=== PATIENT | male | born 1965 ===

== ENCOUNTER 2016-05-05 12:25 | Emergency (ER) | payer MEDICAID ==
[2016-05-05 12:57] VITALS: BMI 23.8
--- NOTE | 2016-05-05 14:01 | C.PDOC ---
History Of Present Illness 50-year-old male, PMHx includes ESRD, presents to the emergency department with complaints of dysuria. Patient states he has been experiencing difficulty when urinating for the past few days. States he was seen by his doctor who prescribed Cirpofloxacin, that he has been taking since 05/02 w/ minor improvement. Patient notes he has been able to urinate a little more than before , but pain before and after urine persists. Pain is described as a burning sensation. He denies fevers, chills, nausea, vomiting, recent travel, or any other associated symptoms. Patient states he called Dr Pérez, who directed him to the ED for further evaluation. No other complaints at this time. PMD Vi pérez MD. Time Seen by Provider: 05/05/16 13:23 Chief Complaint (Nursing): Male Genitourinary History Per: Patient History/Exam Limitations: no limitations Onset/Duration Of Symptoms: Days Current Symptoms Are (Timing): Still Present Severity: Moderate Past Medical History Reviewed: Historical Data, Nursing Documentation, Vital Signs Vital Signs: Last Vital Signs Temp 98.1 F 05/05/16 15:50 Pulse 90 05/05/16 15:50 Resp 20 05/05/16 15:50 BP 132/80 05/05/16 15:50 Pulse Ox 97 05/05/16 15:50 - Medical History PMH: Gastritis, HTN, Hypercholesterolemia, Chronic Kidney Disease Surgical History: Endoscopy - [facility] Procedures ESOPHAGOGASTRODUODENOSCOPY [EGD] W/CLOSED BIOPSY (04/15/14) Family History: States: Unknown Family Hx - Social History Hx Tobacco Use: No Hx Alcohol Use: No Hx Substance Use: No - Immunization History Hx Tetanus Toxoid Vaccination: No Hx Influenza Vaccination: No Hx Pneumococcal Vaccination: No Review Of Systems Except As Marked, All Systems Reviewed And Found Negative. Constitutional: Negative for: Fever Cardiovascular: Negative for: Chest Pain, Palpitations Respiratory: Negative for: Cough, Shortness of Breath Gastrointestinal: Negative for: Nausea, Vomiting Genitourinary: Positive for: Dysuria. Negative for: Hematuria, Penile Discharge , Rash Musculoskeletal: Negative for: Back Pain Skin: Negative for: Rash Neurological: Negative for: Weakness, Numbness, Headache, Dizziness Physical Exam - Physical Exam Appears: Non-toxic, No Acute Distress Head: Atraumatic, Normacephalic Eye(s): bilateral: Normal Inspection, PERRL Nose: Normal Oral Mucosa: Moist Lips: Normal Appearing Neck: Normal ROM Cardiovascular: Rhythm Regular Respiratory: Normal Breath Sounds, No Accessory Muscle Use Gastrointestinal/Abdominal: Soft, Tenderness (mild, suprapubic), No Guarding, No Rebound Extremity: Normal ROM, Pedal Edema (mild, chronic) Neurological/Psych: Oriented x3, Normal Speech ED Course And Treatment O2 Sat by Pulse Oximetry: 97 Medical Decision Making Medical Decision Making: bedside US shows about 100ml PVRV the pt is well appearing, no abd pain or tenderness, no CVA tenderness, no fever disc w pt plan for different abx, urologic follow up, primary follow up, return if worse Disposition - Disposition Disposition: HOME/ ROUTINE Disposition Time: 17:39 Condition: STABLE - Clinical Impression Clinical Impression: Dysuria - Scribe Statement The provider has reviewed the documentation as recorded by the Veeibizabel Navarro All medical record entries made by the Veeibizabel were at my direction and personally dictated by me. I have reviewed the chart and agree that the record accurately reflects my personal performance of the history, physical exam, medical decision making, and the department course for this patient. I have also personally directed, reviewed, and agree with the discharge instructions and disposition.
--- NOTE | 2016-05-05 14:02 | C.PDOC ---
History Of Present Illness Patient is a 50 year old male with medical history of HTN, chronic renal failure , gout who presents to ED with complaint of dysuria since approximately . Patient went to see his PMD, Dr. Vi Chase on 05/02 and was prescribed ciprofloxacin. Patient states he has been taking the cipro since and has had minor alleviation of symptoms. Patient still complains of urinary frequency, burning sensation before and after urination, as well as difficulty emptying his bladder. Patient denies hematuria, fever, chills, nausea, vomiting, recent travel. Patient admits to diarrhea. Time Seen by Provider: 05/05/16 13:23 Chief Complaint (Nursing): Male Genitourinary History Per: Patient History/Exam Limitations: no limitations Current Symptoms Are (Timing): Still Present Quality Of Discomfort: Burning Associated Symptoms: Diarrhea, Urinary Symptoms Alleviating Factors: None Recent travel outside of the [place]: No Past Medical History Vital Signs: Last Vital Signs Temp 98.1 F 05/05/16 12:57 Pulse 79 05/05/16 12:57 Resp 18 05/05/16 12:57 BP 135/85 05/05/16 12:57 Pulse Ox 97 05/05/16 12:57 - Medical History PMH: Gastritis, HTN, Hypercholesterolemia, Chronic Kidney Disease Surgical History: Endoscopy - [facility] Procedures ESOPHAGOGASTRODUODENOSCOPY [EGD] W/CLOSED BIOPSY (04/15/14) Family History: States: Unknown Family Hx - Social History Hx Tobacco Use: No Hx Alcohol Use: No Hx Substance Use: No - Immunization History Hx Tetanus Toxoid Vaccination: No Hx Influenza Vaccination: No Hx Pneumococcal Vaccination: No Review Of Systems Constitutional: Negative for: Fever, Chills Cardiovascular: Negative for: Chest Pain Respiratory: Negative for: Cough Gastrointestinal: Positive for: Diarrhea ED Course And Treatment O2 Sat by Pulse Oximetry: 97
[2016-05-05 15:03] LABS: URINE BACTERIA RARE (<OCC); URINE BILIRUBIN NEGATIVE (NEGATIVE); URINE BLOOD 1+ (NEGATIVE); URINE COLOR Straw (YELLOW); URINE GLUCOSE (UA) NORMAL (Normal); URINE KETONE NEGATIVE (NEGATIVE); URINE LEUKOCYTE ESTERASE NEG Leu/uL (Negative); URINE PROTEIN NEGATIVE (NEGATIVE); URINE UROBILINOGEN NORMAL mg/dL (0.2-1.0); WBC URINE < 1 /hpf (0-5)
[2016-05-05 15:07] LABS: RBC URINE 1 /hpf (0-3)
[2016-05-05 18:14] VITALS: BP 132/78; PULSE 76; RESP 18; TEMP 98; O2SAT 99
== END 2016-05-05 18:00 | disposition home or self-care (01) ==
LOC: C.ER 12:25
DX: R30.0 Dysuria (principal)

== ENCOUNTER 2016-05-31 07:30 | Day surgery (SDC) | payer MEDICAID ==
[2016-05-31 08:14] VITALS: BMI 23.2
[2016-05-31 10:04] VITALS: O2SAT 100
[2016-05-31 10:07] VITALS: TEMP 97
[2016-05-31 11:20] VITALS: BP 159/80; PULSE 69; RESP 14
== END 2016-05-31 10:45 | disposition home or self-care (01) ==
LOC: C.ENDO 07:30
PROVIDERS: ATTEND Internal Medicine Gastroenterology
DX: K29.50 Unspecified chronic gastritis without bleeding (principal)

== ENCOUNTER 2016-07-24 15:45 | Observation (INO) | payer MEDICAID ==
[2016-07-24 15:46] VITALS: BMI 23.2
[2016-07-24] MEDS ORDERED: Sodium Chloride 0.9% 500 ML IV ONE ×2 (16:38→17:08)
--- NOTE | 2016-07-24 16:41 | C.PDOC ---
History Of Present Illness 51 yr old male with PMHx of HTN< CKD and chronic back pain, presents to the ER with complaints of upper abdominal pain for the 3 days. Pain radiates to the back. Patient states the pain is made worse with certain movement. Notes of diarrhea which has resolved now. Denies chest pain, sob, headache, fever, nausea , vomiting, dysuria, weakness or numbness. Time Seen by Provider: 07/24/16 16:25 Chief Complaint (Nursing): Back Pain History Per: Patient History/Exam Limitations: no limitations Onset/Duration Of Symptoms: Days Past Medical History Reviewed: Historical Data, Nursing Documentation, Vital Signs Vital Signs: Last Vital Signs Temp 98.1 F 07/27/16 08:00 Pulse 68 07/27/16 08:00 Resp 20 07/27/16 08:00 BP 143/80 07/27/16 08:00 Pulse Ox 97 07/28/16 04:31 - Medical History PMH: Anemia, Gastritis, HTN, Hypercholesterolemia, Chronic Kidney Disease Surgical History: Endoscopy - [facility] Procedures ESOPHAGOGASTRODUODENOSCOPY [EGD] W/CLOSED BIOPSY (04/15/14) Family History: States: No Known Family Hx - Social History Hx Tobacco Use: No Hx Alcohol Use: No Hx Substance Use: No - Immunization History Hx Tetanus Toxoid Vaccination: No Hx Influenza Vaccination: No Hx Pneumococcal Vaccination: No Review Of Systems Except As Marked, All Systems Reviewed And Found Negative. Constitutional: Negative for: Fever Gastrointestinal: Positive for: Abdominal Pain, Diarrhea (Resolved now). Negative for: Nausea, Vomiting Genitourinary: Negative for: Dysuria Musculoskeletal: Positive for: Back Pain (Chronic ) Neurological: Negative for: Weakness, Numbness Physical Exam - Physical Exam Appears: Well, Non-toxic, Other (uncomfortable) Skin: Warm, Dry, No Rash Head: Atraumatic, Normacephalic Eye(s): bilateral: Normal Inspection, EOMI Nose: Normal Oral Mucosa: Moist Neck: Normal ROM, Supple Chest: Symmetrical, No Tenderness Cardiovascular: Rhythm Regular, No Murmur Respiratory: Normal Breath Sounds, No Rales, No Rhonchi, No Wheezing Gastrointestinal/Abdominal: Soft, Tenderness (RUQ and LUQ ), No Guarding, No Rebound Back: No CVA Tenderness, No Vertebral Tenderness, Paraspinal Tenderness ((+)b/l lower lumbar) Extremity: Normal ROM, Pedal Edema, No Swelling Neurological/Psych: Oriented x3, Normal Speech, Normal Motor, Normal Sensation Gait: Steady ED Course And Treatment - Laboratory Results Result Diagrams: 07/27/16 08:20 07/27/16 08:20 ECG: Interpreted By Me ECG Rhythm: Sinus Rhythm ECG Interpretation: Normal, No Changes From Prior Interpretation Of ECG: LVH. Rate From EC (BPM) O2 Sat by Pulse Oximetry: 97 (RA ) - CT Scan/US US - Abdomen Other Rad Studies (CT/US): Read By Radiologist, Radiology Report Reviewed CT/US Interpretation: HISTORY: Pain. COMPARISON: CT abdomen pelvis without IV contrast performed 04/24/16. TECHNIQUE: Sonographic evaluation of the abdomen. FINDINGS: LIVER: Measures 13.6 cm in sagittal dimension and appears within normal limits of size, shape, and echotexture. No focal hepatic mass identified. The main portal vein appears patent with normal directional flow. No intrahepatic bile duct dilatation. GALLBLADDER: Gallstones. Bladder wall is top normal in thickness measuring approximately 3 mm. Negative sonographic Bah's sign as assessed by the endocrinology physician. COMMON BILE DUCT: Measures 2 mm. PANCREAS: Not well visualized. RIGHT KIDNEY: Measures 10.4 x 4.8 x 5.1cm. No obstructing calculus or hydronephrosis identified. Several probable cysts. For example, 2.7 cm upper pole, 2.8 cm midpole, and 1.4 cm lower pole renal cysts. Echogenic renal parenchyma. LEFT KIDNEY: Measures 11.8 x 4.8 x 5.6cm. No obstructing calculus or hydronephrosis identified. 1.7 cm probable upper pole renal cyst. Extra renal pelvis versus renal cysts measuring approximately 2.8 cm. Echogenic renal parenchyma. SPLEEN: Not visualized. AORTA: Limited views appear unremarkable. IVC: Limited views appear unremarkable. OTHER FINDINGS: None. IMPRESSION: Bilateral renal cysts. Echogenic renal parenchyma may be seen in the setting of medical renal disease. Cholelithiasis. Gallbladder wall is top normal in thickness measuring approximately 3 mm. Negative sonographic Bah's sign as assessed by the endocrinology physician. The spleen is not visualized. Progress Note: PLAN: US - Abdomen, EKG, Troponin, Lipase, CBC, Urinalysis, Morphine IVP, Zofran IVP & Sodium Chloride IV. Case discussed with Dr Solorzano who instructs admission for acute on chronic kindey failure. Case dsicussed with roxie Miranda admission. Disposition - Disposition Disposition: HOSPITALIZED Disposition Time: 18:44 Condition: STABLE - Clinical Impression Clinical Impression: Acute kidney injury, Abdominal pain, Pancreatitis - PA / HANDLE LATHE OPERATOR / Resident Statement MD/DO has reviewed & agrees with the documentation as recorded. - Scribe Statement The provider has reviewed the documentation as recorded by the Scribe Rosalina Tuttle All medical record entries made by the Veeibizabel were at my direction and personally dictated by me. I have reviewed the chart and agree that the record accurately reflects my personal performance of the history, physical exam, medical decision making, and the department course for this patient. I have also personally directed, reviewed, and agree with the discharge instructions and disposition.
[2016-07-24 17:17] LABS: BASO % 0.4 % (0.0-2.0); EOS % 0.1 % (0.0-4.0); HEMATOCRIT 28.3 % (35.0-51.0); LYMPH # 0.6 K/uL (1.0-4.3); MEAN CORPUSCULAR HEMOGLOBIN 31.5 pg (27.0-31.0); MEAN CORPUSCULAR HGB CONC 32.1 g/dL (33.0-37.0); MEAN PLATELET VOLUME 9.8 fL (7.2-11.7); MONO # 0.3 K/uL (0.0-0.8); MONO % 3.3 % (0.0-10.0); NRBC % 0.1 % (0.0-2.0); PLATELET COUNT 171 K/uL (130-400); RED CELL DISTRIBUTION WIDTH 15.8 % (11.5-14.5); WHITE BLOOD COUNT 8.1 K/uL (4.8-10.8)
[2016-07-24 17:26] LABS: RBC URINE < 1 /hpf (0-3); URINE BILIRUBIN NEGATIVE (NEGATIVE); URINE BLOOD 1+ (NEGATIVE); URINE COLOR Straw (YELLOW); URINE GLUCOSE (UA) NORMAL (Normal); URINE KETONE NEGATIVE (NEGATIVE); URINE LEUKOCYTE ESTERASE NEG Leu/uL (Negative); URINE PROTEIN NEGATIVE (NEGATIVE); URINE UROBILINOGEN NORMAL mg/dL (0.2-1.0)
[2016-07-24 17:29] LABS: POTASSIUM 4.3 mmol/L (3.6-5.2)
[2016-07-24 17:32] LABS: ALB/GLOB RATIO 1.2 (1.0-2.1); BILIRUBIN,TOTAL 0.5 mg/dL (0.2-1.3); CALCIUM 8.7 mg/dl (8.6-10.4); TOTAL PROTEIN 5.9 g/dL (6.3-8.3)
[2016-07-24 17:43] LABS: TROPONIN I 0.068 ng/mL (0.00-0.120)
[2016-07-24 18:11] LABS: EOSINOPHIL 1 % (0-4); NEUTROPHIL 85 % (50-75); TOTAL CELLS COUNTED 100
--- NOTE | 2016-07-24 18:16 | US ---
HISTORY: Pain COMPARISON: CT abdomen pelvis without IV contrast performed 04/24/16 TECHNIQUE: Sonographic evaluation of the abdomen. FINDINGS: LIVER: Measures 13.6 cm in sagittal dimension and appears within normal limits of size, shape, and echotexture. No focal hepatic mass identified. The main portal vein appears patent with normal directional flow. No intrahepatic bile duct dilatation. GALLBLADDER: Gallstones. Bladder wall is top normal in thickness measuring approximately 3 mm. Negative sonographic Bah's sign as assessed by the clinical evaluator. COMMON BILE DUCT: Measures 2 mm. PANCREAS: Not well visualized. RIGHT KIDNEY: Measures 10.4 x 4.8 x 5.1cm. No obstructing calculus or hydronephrosis identified. Several probable cysts. For example, 2.7 cm upper pole, 2.8 cm midpole, and 1.4 cm lower pole renal cysts. Echogenic renal parenchyma. LEFT KIDNEY: Measures 11.8 x 4.8 x 5.6cm. No obstructing calculus or hydronephrosis identified. 1.7 cm probable upper pole renal cyst. Extra renal pelvis versus renal cysts measuring approximately 2.8 cm. Echogenic renal parenchyma. SPLEEN: Not visualized. AORTA: Limited views appear unremarkable. IVC: Limited views appear unremarkable. OTHER FINDINGS: None. IMPRESSION: Bilateral renal cysts. Echogenic renal parenchyma may be seen in the setting of medical renal disease Cholelithiasis. Gallbladder wall is top normal in thickness measuring approximately 3 mm. Negative sonographic Bah's sign as assessed by the clinical evaluator. The spleen is not visualized.
--- NOTE | 2016-07-24 19:15 | CP.PCM.HP ---
History of Present Illness - History of Present Illness History of Present Illness: CC: stomach pain for 5 days HPI: 51 year old male PMHx of HTN, HLD, CKD, Chronic back pain, Gout, Anemia of chronic disease, PUD presents with bilateral flank pain for 5 days. Patient reports the pain feels like a dull pressure and is located on both flanks. Patient reports he has pain when he lies down or twists his back but he has no pain when standing or sitting or walking. He denied any pain when I saw him after receiving morphine in the ER but stated he had some tightness in his back at times. 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 Patient saw cover assembler Dr. Roberts on Sunday. Patient admits to abdominal pain, b/l flank pain, b/l leg swelling and back pain and denies fever, chills, diaphoresis, weakness, headache, dizziness, lightheadedness, change in vision, change in hearing, sore throat, dysphagia, chest pain, palpitations, SOB, cough, nausea, vomiting, bowel/ bladder complaints, pain in his legs b/l, recent travel, recent sick contacts. PMD: Dr. Macie Chase PMHx: Chronic back pain, HTN, HLD, CKD, Gout, Anemia of chronic disease, PUD Meds: As per chart: Medrol 4mg po daily, Diclofenac 100mg po daily, Sodiumbicarb 650mg po bid, simvastatin 10mg po daily, ranitidine 150mg po daily , omeprazole 40mg po daily, toprol xl 25mg po daily, Leflunomide 10mg po daily, colchicine 0.6 mg po bid, rocaltrol 0.25mcg po daily, allopurinol 300mg po daily , norvasc 10mg po daily, valsartan 160mg po daily, B complex. <- patient is unsure which medications he is taking ALL: NKDA FamHx: Mother: HTN, HLD, kidney problem SocHx: Denies alcohol, drug, and tobacco use. Lives at home with his and two children ROS: admits: abdominal pain, b/l flank pain, b/l leg swelling and back pain denies: fever, chills, diaphoresis, weakness, headache, dizziness, lightheadedness, change in vision, change in hearing, sore throat, dysphagia, chest pain, palpitations, SOB, cough, nausea, vomiting, bowel/bladder complaints , pain in his legs b/l, recent travel, recent sick contacts. ED Course: Abd u/s Bilateral renal cysts. Echogenic renal parenchyma may be seen in the setting of medical renal disease. Cholelithiasis. Gallbladder wall is top normal in thickness measuring approximately 3 mm. Negative sonographic Bah's sign as assessed by the medic technician. The spleen is not visualized. Morphine IVP, Zofran IVP & Sodium Chloride IV. Routine labs, EKG showing NSR and a negative troponin. Present on Admission - Present on Admission Any Indicators Present on Admission: No Review of Systems - Constitutional Constitutional: As Per HPI. absent: Chills, Fever, Headache, Weakness - EENT Eyes: As Per HPI. absent: Change in Vision Ears: As Per HPI. absent: Ear Discharge, Dizziness Nose/Mouth/Throat: As Per HPI. absent: Nasal Congestion, Sore Throat - Cardiovascular Cardiovascular: As Per HPI, Pedal Edema (b/l). absent: Chest Pain, Dyspnea, Palpitations - Respiratory Respiratory: As Per HPI. absent: Cough, Dyspnea on Exertion, Chest Congestion - Gastrointestinal Gastrointestinal: As Per HPI, Abdominal Pain. absent: Constipation, Diarrhea, Nausea, Vomiting - Genitourinary Genitourinary: As Per HPI, Flank Pain (b/l). absent: Dysuria, Hematuria, Pyuria , Nocturia - Musculoskeletal Musculoskeletal: As Per HPI, Back Pain. absent: Numbness, Tingling - Integumentary Integumentary: As Per HPI. absent: Dry Skin, Rash - Neurological Neurological: As Per HPI. absent: Dizziness, Numbness, Headaches, Tingling - Psychiatric Psychiatric: As Per HPI, Anxiety - Endocrine Endocrine: As Per HPI. absent: Palpitations, Polydipsia, Polyphagia, Polyuria - Hematologic/Lymphatic Hematologic: As Per HPI. absent: Easy Bleeding, Easy Bruising, Lymphadenopathy Past Patient History - Infectious Disease Hx of Infectious Diseases: None - Past Medical History & Family History Past Medical History?: Yes - Past Social History Smoking Status: Never Smoked - CARDIAC Hx Hypercholesterolemia: Yes Hx Hypertension: Yes - PULMONARY Hx Respiratory Disorders: No - NEUROLOGICAL Hx Neurological Disorder: No - HEENT Hx HEENT Problems: No - RENAL Hx Chronic Kidney Disease: Yes - ENDOCRINE/METABOLIC Hx Endocrine Disorders: No - HEMATOLOGICAL/ONCOLOGICAL Hx Anemia: Yes - INTEGUMENTARY Hx Dermatological Problems: Yes Other/Comment: GOUTY NODULES HAND AND JOINTS - MUSCULOSKELETAL/RHEUMATOLOGICAL Hx Musculoskeletal Disorders: Yes Hx Back Pain: Yes Hx Falls: No Hx Gout: Yes - GASTROINTESTINAL Hx Gastritis: Yes - GENITOURINARY/GYNECOLOGICAL Hx Genitourinary Disorders: No - PSYCHIATRIC Hx Substance Use: No - SURGICAL HISTORY Hx Surgeries: Yes Other/Comment: R finger surgery - ANESTHESIA Hx Anesthesia: Yes Hx Anesthesia Reactions: No Hx Malignant Hyperthermia: No Meds Allergies/Adverse Reactions: Allergies Allergy/AdvReac Type Severity Reaction Status Date / Time No Known Allergies Allergy Verified 07/24/16 15:56 Physical Exam - Constitutional Appears: Well, Non-toxic, No Acute Distress - Head Exam Head Exam: ATRAUMATIC, NORMAL INSPECTION, NORMOCEPHALIC - Eye Exam Eye Exam: EOMI, Normal appearance, PERRL. absent: Conjunctival injection, Scleral icterus Pupil Exam: NORMAL ACCOMODATION, PERRL - ENT Exam ENT Exam: Mucous Membranes Moist - Neck Exam Neck exam: Positive for: Full Rom, Normal Inspection. Negative for: Lymphadenopathy, Tenderness - Respiratory Exam Respiratory Exam: Clear to Auscultation Bilateral, NORMAL BREATHING PATTERN. absent: Accessory Muscle Use, Rales, Rhonchi, Wheezes, Respiratory Distress - Cardiovascular Exam Cardiovascular Exam: REGULAR RHYTHM, RRR, +S1, +S2. absent: Systolic Murmur - GI/Abdominal Exam GI & Abdominal Exam: Normal Bowel Sounds, Soft, Tenderness (mild tenderness to deep palpation on ruq and rlq). absent: Distended, Firm, Guarding, Hernia, Rigid - Extremities Exam Extremities exam: Positive for: normal capillary refill, normal inspection, pedal pulses present. Negative for: pedal edema, tenderness - Back Exam Back exam: NORMAL INSPECTION, paraspinal tenderness (b/l lower lumbar). absent : CVA tenderness (L), CVA tenderness (R), rash noted, vertebral tenderness - Neurological Exam Neurological exam: Alert, CN II-XII Intact, Oriented x3 - Psychiatric Exam Psychiatric exam: Anxious - Skin Skin Exam: Dry, Intact, Normal Color, Warm Results - Vital Signs Recent Vital Signs: Last Vital Signs Temp 98.4 F 07/24/16 18:50 Pulse 88 07/24/16 18:50 Resp 18 07/24/16 18:50 BP 162/88 H 07/24/16 18:50 Pulse Ox 96 07/24/16 18:50 - Labs Result Diagrams: 07/24/16 17:08 07/24/16 17:08 Assessment & Plan - Assessment and Plan (Free Text) Assessment: 51 year old male PMHx of HTN, HLD, CKD, Chronic back pain, Anemia of chronic disease, PUD presents with bilateral flank pain for 5 days Plan: NICOLASA on CKD -Cr on admission 3.1 - baseline Cr 2.3 -certain nephrotoxic drugs from med rec are on hold -Abd u/s Bilateral renal cysts. Echogenic renal parenchyma may be seen in the setting of medical renal disease. Cholelithiasis. Gallbladder wall is top normal in thickness measuring approximately 3 mm. Negative sonographic Bah's sign as assessed by the medic technician. The spleen is not visualized. -NS @ 80cc/hr -Calcitriol 0.25mcg po daily -Nephro: Dr Roberts- f/u reccs HTN -Norvasc 10mg po daily -Toprol xl 25mg po daily -home valsartan on hold HLD -f/u lipid panel -statin on hold Gout -Allopurinol 100mg po daily Chronic back pain -Monitor Anemia of chronic disease -H&H 9.1 and 28.3 -Monitor PUD -Protonix 40mg po daily PPX -Protonix 40mg po daily -Heparin 5000u sc q12 -SCDs -Heart healthy mod consistent carb renal diet -Zofran 4mg ivp q6 prn nausea/vomiting Plan discussed with Dr Eleno Akbar PGY1
[2016-07-25] MEDS: Sodium Chloride 0.9% 1,000 ML IV SCH ×2 (01:00→18:20)
--- NOTE | 2016-07-25 07:25 | CP.PCM.PN ---
<ParisnoemiGreg - Last Filed: 07/25/16 19:31> Subjective - Date & Time of Evaluation Date of Evaluation: 07/25/16 Time of Evaluation: 07:17 - Subjective Subjective: PGY-1 note for medicine service: Pt seen and examined at bedside. Nursing reports no acute events overnight. Patient stated that he was able to sleep okay last night and that his b/l flank pain has improved. He is currently complaining of right flank pain this morning that gets worse when he twist his body or when he goes from a sitting position to a supine position. He also admits that he has right foot pain due to gout which he states he had an appointment for this morning at 9am. Patient denies fever, chills, chest pain, sob, n/v, d/c, hematuria, urinary changes, leg swelling, abdominal pain, or cough. Pt meds verified with [facility] (Last filled this month): Omeprazole 40mg daily, Rantidine 150mg BID, NaBicarb 650mg BID, Lopressor 50mg BID, Norvasc 10mg Daily, Simvastatin 20mg Daily Objective - Vital Signs/Intake and Output Vital Signs (last 24 hours): Temp Pulse Resp BP Pulse Ox 97.4 F L 72 20 145/75 96 07/24/16 23:12 07/24/16 23:12 07/24/16 23:12 07/24/16 23:12 07/24/16 23:12 Intake and Output: 07/25/16 07/25/16 06:59 18:59 Intake Total 240 Balance 240 - Medications Medications: Current Medications Allopurinol (Zyloprim) 100 mg PO DAILY [facility] Amlodipine Besylate (Norvasc) 10 mg PO DAILY [facility] Calcitriol (Rocaltrol) 0.25 mcg PO DAILY [facility] Heparin Sodium (Porcine) (Heparin) 5,000 units SC Q12 [facility] Home Med (Leflunomide [Leflunomide]) 10 mg PO DAILY [facility] Sodium Chloride (Sodium Chloride 0.9%) 1,000 mls @ 80 mls/hr IV .[id number] [facility] Last Admin: 07/25/16 01:00 Dose: 80 mls/hr Metoprolol Succinate (Toprol Xl) 25 mg PO DAILY [facility] Ondansetron HCl (Zofran Inj) 4 mg IVP Q6H PRN PRN Reason: Nausea/Vomiting Pantoprazole Sodium (Protonix Ec Tab) 40 mg PO DAILY [facility] Assessment and Plan - Assessment and Plan (Free Text) Assessment: 51 year old male PMHx of HTN, HLD, CKD, Chronic back pain, Anemia of chronic disease, PUD presents with bilateral flank pain for 5 days Plan: NICOLASA on CKD -Cr on admission 3.0 on AM labs - baseline Cr 2.3 -certain nephrotoxic drugs from [facility] rec are on hold -Abd u/s (07/25/16): Bilateral renal cysts. Echogenic renal parenchyma may be seen in the setting of medical renal disease. Cholelithiasis. Gallbladder wall is top normal in thickness measuring approximately 3 mm. Negative sonographic Bah's sign as assessed by the flamer sealer. The spleen is not visualized. -NS @ 80cc/hr -Calcitriol 0.25mcg po daily -Nephro: Dr Roberts - unclear etiology of CKD - check urine eosinophils, urine cx HTN -Norvasc 10mg po daily -Lopressor 50mg PO BID - initially started on XL, but verified with pt pharmacy -home valsartan on hold HLD -Lipid panel: T Cholesterol elevated, but HDL 99, so low cardiac risk -statin on hold (excretion, and for elevated CK, CK-MB) Gout -Allopurinol 100mg po daily - f/u uric acid Chronic back pain/flank pain Lipase elevated - continue fluids -Monitor Anemia of chronic disease -H&H 10.8 -Monitor PUD -Protonix 40mg po daily (Held per Nephro) PPX -Protonix 40mg po daily (discontinued at recc of Nephro) -Heparin 5000u sc q12 -SCDs -Heart healthy mod consistent carb renal diet -Zofran 4mg ivp q6 prn nausea/vomiting DW Dr. Kaila Mann, PGY-1 <Kamran Bright - Last Filed: 07/26/16 08:13> Objective - Vital Signs/Intake and Output Vital Signs (last 24 hours): Temp Pulse Resp BP Pulse Ox 97.8 F 72 18 129/72 97 07/26/16 00:00 07/26/16 00:00 07/26/16 00:00 07/26/16 00:00 07/26/16 00:00 - Medications Medications: Current Medications Allopurinol (Zyloprim) 100 mg PO DAILY [facility] Last Admin: 07/25/16 09:32 Dose: 100 mg Amlodipine Besylate (Norvasc) 10 mg PO DAILY [facility] Last Admin: 07/25/16 09:32 Dose: 10 mg Calcitriol (Rocaltrol) 0.25 mcg PO DAILY [facility] Last Admin: 07/25/16 09:32 Dose: 0.25 mcg Heparin Sodium (Porcine) (Heparin) 5,000 units SC Q12 [facility] Last Admin: 07/25/16 21:41 Dose: 5,000 units Home Med (Leflunomide [Leflunomide]) 10 mg PO DAILY [facility] Sodium Chloride (Sodium Chloride 0.9%) 1,000 mls @ 80 mls/hr IV .[id number] [facility] Last Admin: 07/25/16 18:20 Dose: 80 mls/hr Metoprolol Tartrate (Lopressor) 50 mg PO BID [facility] Ondansetron HCl (Zofran Inj) 4 mg IVP Q6H PRN PRN Reason: Nausea/Vomiting - Labs Labs: 07/26/16 06:24 07/26/16 06:24 APTT 26 SECONDS (21-34) 07/25/16 07:12 Attending/Attestation - Attestation I have personally seen and examined this patient.: Yes I have fully participated in the care of the patient.: Yes I have reviewed all pertinent clinical information, including history, physical exam and plan: Yes Notes (Text): Medical Attending: Patient was seen and examined by me. Agree with the above note by the resident The patient still had an elevated creatine when we saw the patient yesterday. Currently holding medications that could complicate his CKD however he is still of a smaller dose of allopurinol. On IVF slowly at this time. thank you Kamran Bright
[2016-07-25 07:32] LABS: POTASSIUM 3.9 mmol/L (3.6-5.2)
[2016-07-25 07:34] LABS: ALB/GLOB RATIO 1.3 (1.0-2.1); BILIRUBIN,TOTAL 0.7 mg/dL (0.2-1.3)
[2016-07-25 07:35] LABS: BASO % 0.5 % (0.0-2.0); EOS # 0.1 K/uL (0.0-0.7); EOS % 0.6 % (0.0-4.0); HEMATOCRIT 33.9 % (35.0-51.0); LYMPH # 1.7 K/uL (1.0-4.3); LYMPH % 16.6 % (20.0-40.0); MAGNESIUM 1.6 mg/dL (1.6-2.3); MEAN CELL VOLUME 98.3 fL (80.0-94.0); MEAN CORPUSCULAR HEMOGLOBIN 31.3 pg (27.0-31.0); MEAN CORPUSCULAR HGB CONC 31.9 g/dL (33.0-37.0); MEAN PLATELET VOLUME 9.7 fL (7.2-11.7); MONO # 0.9 K/uL (0.0-0.8); MONO % 8.4 % (0.0-10.0); PHOSPHOROUS 3.9 mg/dL (2.5-4.5); RED CELL DISTRIBUTION WIDTH 15.9 % (11.5-14.5); WHITE BLOOD COUNT 10.4 K/uL (4.8-10.8)
--- NOTE | 2016-07-25 09:50 | CARD ---
APPROVED REPORT EKG Measurement Heart [id number] <Conclusion> Normal sinus rhythm Left axis deviation Left ventricular hypertrophy with repolarization abnormality Abnormal ECG
[2016-07-25] MEDS ORDERED: LEFLUNOMIDE 10 MG PO SCH (10:00)
[2016-07-25] MEDS ORDERED: Pantoprazole 40 mg EC Tab PO SCH (10:00)
[2016-07-25] MEDS ORDERED: Metoprolol Succinate 25 mg XL Tab PO SCH ×2 (10:00)
--- NOTE | 2016-07-25 12:19 | CP.PCM.CON ---
History of Present Illness - History of Present Illness History of Present Illness: 51 year old male PMHx of HTN, HLD, CKD, Chronic back pain, Gout, Anemia of chronic disease, PUD presents with bilateral flank pain for 5 days. Patient reports the pain feels like a dull pressure and is located on both flanks. Patient reports he has pain when he lies down or twists his back but he has no pain when standing or sitting or walking. He denied any pain when I saw him after receiving morphine in the ER but stated he had some tightness in his back at times. He also admitted to some lower extremity swelling at the end of the day after work but admitted it resolves overnight. Patient admits to abdominal pain, b/l flank pain, b/l leg swelling and back pain and denies fever, chills, diaphoresis, weakness, headache, dizziness, lightheadedness, change in vision, change in hearing, sore throat, dysphagia, chest pain, palpitations, SOB, cough , nausea, vomiting, bowel/bladder complaints, pain in his legs b/l, recent travel, recent sick contacts. Pt has hx of ckd, last baseline creatinine 2.3 - 2.4 mg/dl. REnal cysts on recent imaging. PMHx: Chronic back pain, HTN, HLD, CKD, Gout, Anemia of chronic disease, PUD Meds: As per chart: Medrol 4mg po daily, Diclofenac 100mg po daily, Sodiumbicarb 650mg po bid, simvastatin 10mg po daily, ranitidine 150mg po daily , omeprazole 40mg po daily, toprol xl 25mg po daily, Leflunomide 10mg po daily, colchicine 0.6 mg po bid, rocaltrol 0.25mcg po daily, allopurinol 300mg po daily , norvasc 10mg po daily, valsartan 160mg po daily, B complex. <- patient is unsure which medications he is taking ALL: NKDA FamHx: Mother: HTN, HLD, kidney problem SocHx: Denies alcohol, drug, and tobacco use. Lives at home with his and two children ROS: admits: abdominal pain, b/l flank pain, b/l leg swelling and back pain denies: fever, chills, diaphoresis, weakness, headache, dizziness, lightheadedness, change in vision, change in hearing, sore throat, dysphagia, chest pain, palpitations, SOB, cough, nausea, vomiting, bowel/bladder complaints , pain in his legs b/l, recent travel, recent sick contacts. Review of Systems - Review of Systems All systems: reviewed and no additional remarkable complaints except (per hpi) Past Patient History - Infectious Disease Hx of Infectious Diseases: None - Past Medical History & Family History Past Medical History?: Yes - Past Social History Smoking Status: Never Smoked - CARDIAC Hx Hypercholesterolemia: Yes Hx Hypertension: Yes - PULMONARY Hx Respiratory Disorders: No - NEUROLOGICAL Hx Neurological Disorder: No - HEENT Hx HEENT Problems: No - RENAL Hx Chronic Kidney Disease: Yes - ENDOCRINE/METABOLIC Hx Endocrine Disorders: No - HEMATOLOGICAL/ONCOLOGICAL Hx Anemia: Yes - INTEGUMENTARY Hx Dermatological Problems: Yes Other/Comment: GOUTY NODULES HAND AND JOINTS - MUSCULOSKELETAL/RHEUMATOLOGICAL Hx Musculoskeletal Disorders: Yes Hx Back Pain: Yes Hx Falls: No Hx Gout: Yes - GASTROINTESTINAL Hx Gastritis: Yes - GENITOURINARY/GYNECOLOGICAL Hx Genitourinary Disorders: No - PSYCHIATRIC Hx Substance Use: No - SURGICAL HISTORY Hx Surgeries: Yes Other/Comment: R finger surgery - ANESTHESIA Hx Anesthesia: Yes Hx Anesthesia Reactions: No Hx Malignant Hyperthermia: No Meds Allergies/Adverse Reactions: Allergies Allergy/AdvReac Type Severity Reaction Status Date / Time No Known Allergies Allergy Verified 07/24/16 15:56 - Medications Medications: Current Medications Allopurinol (Zyloprim) 100 mg PO DAILY [facility] Last Admin: 07/25/16 09:32 Dose: 100 mg Amlodipine Besylate (Norvasc) 10 mg PO DAILY [facility] Last Admin: 07/25/16 09:32 Dose: 10 mg Calcitriol (Rocaltrol) 0.25 mcg PO DAILY [facility] Last Admin: 07/25/16 09:32 Dose: 0.25 mcg Heparin Sodium (Porcine) (Heparin) 5,000 units SC Q12 [facility] Last Admin: 07/25/16 09:33 Dose: 5,000 units Home Med (Leflunomide [Leflunomide]) 10 mg PO DAILY [facility] Sodium Chloride (Sodium Chloride 0.9%) 1,000 mls @ 80 mls/hr IV .[id number] [facility] Last Admin: 07/25/16 01:00 Dose: 80 mls/hr Metoprolol Tartrate (Lopressor) 50 mg PO BID [facility] Ondansetron HCl (Zofran Inj) 4 mg IVP Q6H PRN PRN Reason: Nausea/Vomiting Pantoprazole Sodium (Protonix Ec Tab) 40 mg PO DAILY [facility] Last Admin: 07/25/16 09:32 Dose: 40 mg Physical Exam - Constitutional Appears: Non-toxic, No Acute Distress - Head Exam Head Exam: NORMAL INSPECTION - Eye Exam Eye Exam: Normal appearance - ENT Exam ENT Exam: Mucous Membranes Moist, Normal Exam - Neck Exam Neck exam: Positive for: Normal Inspection - Respiratory Exam Respiratory Exam: Clear to Auscultation Bilateral, NORMAL BREATHING PATTERN - Cardiovascular Exam Cardiovascular Exam: REGULAR RHYTHM, RRR - GI/Abdominal Exam GI & Abdominal Exam: Distended, Normal Bowel Sounds, Soft, Tenderness Additional comments: ruq - Extremities Exam Extremities exam: Positive for: normal inspection - Back Exam Back exam: NORMAL INSPECTION - Neurological Exam Neurological exam: Alert, CN II-XII Intact, Oriented x3 - Skin Skin Exam: Intact, Warm Results - Vital Signs Recent Vital Signs: Last Vital Signs Temp 97.5 F L 07/25/16 08:00 Pulse 80 07/25/16 08:00 Resp 20 07/25/16 08:00 BP 162/98 H 07/25/16 08:00 Pulse Ox 98 07/25/16 08:00 - Labs Result Diagrams: 07/25/16 07:12 07/25/16 07:12 Labs: Laboratory Results - last 24 hr 07/25/16 07/25/16 07/25/16 07:12 07:12 07:12 WBC 10.4 RBC 3.45 L Hgb 10.8 L Hct 33.9 L MCV 98.3 H MCH 31.3 H MCHC 31.9 L RDW 15.9 H Plt Count 181 MPV 9.7 Neut % (Auto) 73.9 Lymph % (Auto) 16.6 L Sevier % (Auto) 8.4 Eos % (Auto) 0.6 Baso % (Auto) 0.5 Neut # 7.7 H Lymph # 1.7 Sevier # 0.9 H Eos # 0.1 Baso # 0.0 APTT Sodium 140 Potassium 3.9 Chloride 104 Carbon Dioxide 27 Anion Gap 12 BUN 45 H Creatinine 3.0 H Est GFR ( Amer) 27 Est GFR (Non-Af Amer) 22 Random Glucose 84 Hemoglobin A1c 5.8 Calcium 9.0 Phosphorus 3.9 Magnesium 1.6 Total Bilirubin 0.7 AST 53 ALT 53 Alkaline Phosphatase 52 Total Protein 7.0 Albumin 4.0 Globulin 3.0 Albumin/Globulin Ratio 1.3 Triglycerides 71 Cholesterol 247 H LDL Cholesterol Direct 112 HDL Cholesterol 99 H 07/25/16 07:12 WBC RBC Hgb Hct MCV MCH MCHC RDW Plt Count MPV Neut % (Auto) Lymph % (Auto) Sevier % (Auto) Eos % (Auto) Baso % (Auto) Neut # Lymph # Sevier # Eos # Baso # APTT 26 Sodium Potassium Chloride Carbon Dioxide Anion Gap BUN Creatinine Est GFR ( Amer) Est GFR (Non-Af Amer) Random Glucose Hemoglobin A1c Calcium Phosphorus Magnesium Total Bilirubin AST ALT Alkaline Phosphatase Total Protein Albumin Globulin Albumin/Globulin Ratio Triglycerides Cholesterol LDL Cholesterol Direct HDL Cholesterol Assessment & Plan (1) Abdominal pain Status: Acute (2) Acute kidney injury Status: Acute (3) Gout Status: Acute (4) CKD (chronic kidney disease) Status: Chronic (5) HTN (hypertension) Status: Chronic - Assessment and Plan (Free Text) Assessment: # luz maria / underlying ckd 4 - unclear etiology. abd US unremarkable. check ua. check urine eosinophils, consider dc PPI . agree w/ iv fluids # abdomial pain: unclear etiology. no hx of nephrolithiasis. check urine culture. elevated lipase -?pancreatitis # htn -maintain meds # gout: check uric acid levels
[2016-07-25 13:10] LABS: URIC ACID 4.8 mg/dL (3.5-8.5)
[2016-07-25 14:08] LABS: RBC URINE < 1 /hpf (0-3); URINE BILIRUBIN NEGATIVE (NEGATIVE); URINE BLOOD 1+ (NEGATIVE); URINE COLOR Straw (YELLOW); URINE GLUCOSE (UA) NORMAL (Normal); URINE KETONE NEGATIVE (NEGATIVE); URINE LEUKOCYTE ESTERASE NEG Leu/uL (Negative); URINE PROTEIN NEGATIVE (NEGATIVE); URINE UROBILINOGEN NORMAL mg/dL (0.2-1.0)
[2016-07-26 06:50] LABS: POTASSIUM 4.5 mmol/L (3.6-5.2)
[2016-07-26 06:52] LABS: ALB/GLOB RATIO 1.2 (1.0-2.1); BILIRUBIN,TOTAL 0.6 mg/dL (0.2-1.3); TOTAL PROTEIN 5.7 g/dL (6.3-8.3)
[2016-07-26 06:53] LABS: CALCIUM 8.4 mg/dl (8.6-10.4); MAGNESIUM 1.3 mg/dL (1.6-2.3)
[2016-07-26 06:58] LABS: BASO # 0.1 K/uL (0.0-0.2); EOS % 0.6 % (0.0-4.0); HEMATOCRIT 31.6 % (35.0-51.0); LYMPH # 1.7 K/uL (1.0-4.3); MEAN CELL VOLUME 98.9 fL (80.0-94.0); MEAN CORPUSCULAR HEMOGLOBIN 31.8 pg (27.0-31.0); MEAN CORPUSCULAR HGB CONC 32.2 g/dL (33.0-37.0); MEAN PLATELET VOLUME 9.9 fL (7.2-11.7); MONO # 0.8 K/uL (0.0-0.8); MONO % 10.9 % (0.0-10.0); RED CELL DISTRIBUTION WIDTH 16.1 % (11.5-14.5); WHITE BLOOD COUNT 7.7 K/uL (4.8-10.8)
[2016-07-26] MEDS: Sodium Chloride 0.9% 1,000 ML IV SCH ×3 (08:43→23:46)
--- NOTE | 2016-07-26 09:27 | CP.PCM.PN ---
<Greg Mann - Last Filed: 07/26/16 16:08> Subjective - Date & Time of Evaluation Date of Evaluation: 07/26/16 Time of Evaluation: 09:25 - Subjective Subjective: PGY-1 note for medicine service: Pt seen and examined at bedside. Nursing reports no acute events overnight. Patient stated that the flank pain had gone away and was able to lie flat and sleep without difficulty. The pain is not recreated with twisting motion or moving from a sitting position to a supine position. Patient denies fever, chills, chest pain, sob, n/v, d/c, hematuria, urinary changes, leg swelling, abdominal pain, or cough. Objective - Vital Signs/Intake and Output Vital Signs (last 24 hours): Temp Pulse Resp BP Pulse Ox 97.8 F 72 18 129/72 97 07/26/16 00:00 07/26/16 00:00 07/26/16 00:00 07/26/16 00:00 07/26/16 00:00 Intake and Output: 07/26/16 07/26/16 06:59 18:59 Intake Total 760 Balance 760 - Medications Medications: Current Medications Allopurinol (Zyloprim) 100 mg PO DAILY [facility] Last Admin: 07/25/16 09:32 Dose: 100 mg Amlodipine Besylate (Norvasc) 10 mg PO DAILY [facility] Last Admin: 07/25/16 09:32 Dose: 10 mg Calcitriol (Rocaltrol) 0.25 mcg PO DAILY [facility] Last Admin: 07/25/16 09:32 Dose: 0.25 mcg Heparin Sodium (Porcine) (Heparin) 5,000 units SC Q12 [facility] Last Admin: 07/25/16 21:41 Dose: 5,000 units Home Med (Leflunomide [Leflunomide]) 10 mg PO DAILY [facility] Sodium Chloride (Sodium Chloride 0.9%) 1,000 mls @ 80 mls/hr IV .[id number] [facility] Last Admin: 07/26/16 08:43 Dose: 80 mls/hr Metoprolol Tartrate (Lopressor) 50 mg PO BID [facility] Ondansetron HCl (Zofran Inj) 4 mg IVP Q6H PRN PRN Reason: Nausea/Vomiting - Labs Labs: 07/26/16 06:24 07/26/16 06:24 APTT 26 SECONDS (21-34) 07/25/16 07:12 - Constitutional Appears: Non-toxic, No Acute Distress - Head Exam Head Exam: ATRAUMATIC, NORMAL INSPECTION, NORMOCEPHALIC - Eye Exam Eye Exam: EOMI. absent: Scleral icterus Pupil Exam: PERRL - ENT Exam ENT Exam: Mucous Membranes Moist - Neck Exam Neck Exam: Full ROM - Respiratory Exam Respiratory Exam: Clear to Ausculation Bilateral, NORMAL BREATHING PATTERN. absent: Rales, Rhonchi, Wheezes - Cardiovascular Exam Cardiovascular Exam: REGULAR RHYTHM, +S1, +S2 - GI/Abdominal Exam GI & Abdominal Exam: Soft, Normal Bowel Sounds. absent: Tenderness - Extremities Exam Extremities Exam: Normal Inspection. absent: Pedal Edema, Tenderness - Back Exam Back Exam: absent: CVA tenderness (L), CVA tenderness (R) - Neurological Exam Neurological Exam: Alert, Awake, Oriented x3 - Psychiatric Exam Psychiatric exam: Normal Affect, Normal Mood - Skin Skin Exam: Dry, Normal Color, Warm Assessment and Plan - Assessment and Plan (Free Text) Assessment: 51 year old male PMHx of HTN, HLD, CKD, Chronic back pain, Anemia of chronic disease, PUD presents with bilateral flank pain for 5 days. Noticable bump in creatinine (3 now from 2.3 baseline). Plan: NICOLASA on CKD -Cr on admission 3.1 on AM labs - baseline Cr 2.3 -certain nephrotoxic drugs from med rec are on hold -Abd u/s (07/25/16): Bilateral renal cysts. Echogenic renal parenchyma may be seen in the setting of medical renal disease. Cholelithiasis. Gallbladder wall is top normal in thickness measuring approximately 3 mm. Negative sonographic Bah's sign as assessed by the embedded engineer. The spleen is not visualized. f/u CT A/P (07/26/16) -NS increased to 120cc/hr -Calcitriol 0.25mcg po daily -Nephro: Dr Roberts - Urine eosinophils: negative - Urine cx: No growth - Believe pancreatitis Abdominal/Flank Pain - Pt denies this AM, but has been right flank/abdomen - believed possible pancreatitis etiology - Lipase >400 yesterday, will redraw today HTN Elevated, will monitor with increased fluids -Norvasc 10mg po daily -Lopressor 50mg PO BID - initially started on XL, but verified with pt pharmacy -home valsartan on hold HLD -Lipid panel: T Cholesterol elevated, but HDL 99, so low cardiac risk -statin on hold (excretion, and for elevated CK, CK-MB) Gout - Discontinued Allopurinol 100mg po daily - uric acid WNL Anemia of chronic disease -H&H stable today -Monitor PUD -Protonix 40mg po daily (Held per Nephro) PPX -Protonix 40mg po daily (discontinued at recc of Nephro) -Heparin 5000u sc q12 -SCDs -Heart healthy mod consistent carb renal diet -Zofran 4mg ivp q6 prn nausea/vomiting DW Dr. Kaila Mann, PGY-1 <Kamran Bright H - Last Filed: 07/26/16 16:38> Objective - Vital Signs/Intake and Output Vital Signs (last 24 hours): Temp Pulse Resp BP Pulse Ox 97.7 F 78 20 152/97 H 99 07/26/16 07:00 07/26/16 07:00 07/26/16 07:00 07/26/16 07:00 07/26/16 07:00 Intake and Output: 07/26/16 07/26/16 06:59 18:59 Intake Total 760 90 Balance 760 90 - Medications Medications: Current Medications Amlodipine Besylate (Norvasc) 10 mg PO DAILY [facility] Last Admin: 07/26/16 12:08 Dose: 10 mg Calcitriol (Rocaltrol) 0.25 mcg PO DAILY [facility] Last Admin: 07/26/16 12:08 Dose: 0.25 mcg Heparin Sodium (Porcine) (Heparin) 5,000 units SC Q12 [facility] Last Admin: 07/26/16 12:09 Dose: 5,000 units Home Med (Leflunomide [Leflunomide]) 10 mg PO DAILY [facility] Sodium Chloride (Sodium Chloride 0.9%) 1,000 mls @ 120 mls/hr IV .[id number] [facility] Last Admin: 07/26/16 16:22 Dose: 120 mls/hr Metoprolol Tartrate (Lopressor) 50 mg PO BID [facility] Last Admin: 07/26/16 12:09 Dose: 50 mg Ondansetron HCl (Zofran Inj) 4 mg IVP Q6H PRN PRN Reason: Nausea/Vomiting - Labs Labs: 07/26/16 06:24 07/26/16 06:24 APTT 26 SECONDS (21-34) 07/25/16 07:12 Attending/Attestation - Attestation I have personally seen and examined this patient.: Yes I have fully participated in the care of the patient.: Yes I have reviewed all pertinent clinical information, including history, physical exam and plan: Yes Notes (Text): Medical attending: Patient was seen and examined by me, agrees the above note by medical geneticist. The patient reported that the abdominal as well as flank pain that he was having earlier has resolved at this time. He still on slow intravenous fluids. It's possible that maybe he had pancreatitis In the meantime his creatinine remains elevated some of his medications have been placed on hold including allopurinol, PILAR inhibitor, NSAIDs. Thank you very much, Kamran Bright
--- NOTE | 2016-07-26 14:49 | CP.PCM.PN ---
Subjective - Date & Time of Evaluation Date of Evaluation: 07/26/16 Time of Evaluation: 14:47 - Subjective Subjective: Less abdominal pains Lipase elevated- likely pancreatitis Creat 3.1; Renal US consistent with CKD Has known CKD 4 Objective - Vital Signs/Intake and Output Vital Signs (last 24 hours): Temp Pulse Resp BP Pulse Ox 97.7 F 78 20 152/97 H 99 07/26/16 07:00 07/26/16 07:00 07/26/16 07:00 07/26/16 07:00 07/26/16 07:00 Intake and Output: 07/26/16 07/26/16 06:59 18:59 Intake Total 760 Balance 760 - Medications Medications: Current Medications Allopurinol (Zyloprim) 100 mg PO DAILY [facility] Last Admin: 07/26/16 12:08 Dose: 100 mg Amlodipine Besylate (Norvasc) 10 mg PO DAILY [facility] Last Admin: 07/26/16 12:08 Dose: 10 mg Calcitriol (Rocaltrol) 0.25 mcg PO DAILY [facility] Last Admin: 07/26/16 12:08 Dose: 0.25 mcg Heparin Sodium (Porcine) (Heparin) 5,000 units SC Q12 [facility] Last Admin: 07/26/16 12:09 Dose: 5,000 units Home Med (Leflunomide [Leflunomide]) 10 mg PO DAILY [facility] Sodium Chloride (Sodium Chloride 0.9%) 1,000 mls @ 80 mls/hr IV .[id number] [facility] Last Admin: 07/26/16 08:43 Dose: 80 mls/hr Metoprolol Tartrate (Lopressor) 50 mg PO BID [facility] Last Admin: 07/26/16 12:09 Dose: 50 mg Ondansetron HCl (Zofran Inj) 4 mg IVP Q6H PRN PRN Reason: Nausea/Vomiting - Labs Labs: 07/26/16 06:24 07/26/16 06:24 APTT 26 SECONDS (21-34) 07/25/16 07:12 - Constitutional Appears: No Acute Distress, Chronically Ill - Head Exam Head Exam: ATRAUMATIC, NORMAL INSPECTION - Eye Exam Eye Exam: EOMI, Normal appearance - Neck Exam Neck Exam: Normal Inspection. absent: Tenderness - Respiratory Exam Respiratory Exam: Clear to Ausculation Bilateral, NORMAL BREATHING PATTERN - Cardiovascular Exam Cardiovascular Exam: REGULAR RHYTHM, +S1 - GI/Abdominal Exam GI & Abdominal Exam: Soft. absent: Tenderness - Extremities Exam Extremities Exam: Normal Inspection. absent: Tenderness - Neurological Exam Neurological Exam: Alert, CN II-XII Intact - Skin Skin Exam: Dry, Warm Assessment and Plan (1) CKD (chronic kidney disease) stage 4, GFR 15-29 ml/min Status: Acute (2) Pancreatitis Status: Acute (3) Abdominal pain Status: Acute (4) HTN (hypertension) Status: Chronic - Assessment and Plan (Free Text) Plan: Monitor renal function, HTN
[2016-07-26 22:08] LABS: CALCIUM 8.9 mg/dL (8.6-10.3)
[2016-07-27 00:38] VITALS: O2SAT 97
[2016-07-27] MEDS: Sodium Chloride 0.9% 1,000 ML IV SCH (08:09)
[2016-07-27 08:25] VITALS: BP 143/80; PULSE 68; RESP 20; TEMP 98.1
[2016-07-27 08:26] LABS: BASO % 0.5 % (0.0-2.0); EOS # 0.1 K/uL (0.0-0.7); EOS % 0.7 % (0.0-4.0); HEMATOCRIT 31.9 % (35.0-51.0); LYMPH # 1.6 K/uL (1.0-4.3); LYMPH % 18.4 % (20.0-40.0); MEAN CELL VOLUME 97.4 fL (80.0-94.0); MEAN CORPUSCULAR HEMOGLOBIN 31.5 pg (27.0-31.0); MEAN CORPUSCULAR HGB CONC 32.3 g/dL (33.0-37.0); MEAN PLATELET VOLUME 9.8 fL (7.2-11.7); MONO % 11.6 % (0.0-10.0); RED CELL DISTRIBUTION WIDTH 15.6 % (11.5-14.5); WHITE BLOOD COUNT 8.9 K/uL (4.8-10.8)
[2016-07-27 08:55] LABS: POTASSIUM 3.8 mmol/L (3.6-5.2)
[2016-07-27 08:57] LABS: BILIRUBIN,TOTAL 0.4 mg/dL (0.2-1.3); TOTAL PROTEIN 5.8 g/dL (6.3-8.3)
[2016-07-27 08:58] LABS: CALCIUM 8.1 mg/dl (8.6-10.4); PHOSPHOROUS 3.1 mg/dL (2.5-4.5)
[2016-07-27] MEDS: Magnesium Sulfate 1 gm in D5W 1 GM/100 ML BAG IVPB SCH ×2 (11:05→11:54)
--- NOTE | 2016-07-27 11:05 | CT ---
PROCEDURE: CT Abdomen and Pelvis without Oral or IV contrast. HISTORY: abd pain, elevated lipase COMPARISON: Abdominal ultrasound performed 07/24/16, CT abdomen and pelvis without IV contrast performed 04/24/16 TECHNIQUE: Contiguous axial images of the abdomen and pelvis. No oral or IV contrast administered. Coronal and Sagittal reformats generated and reviewed. Radiation dose: Total exam DLP = 270.90 mGy-cm. This CT exam was performed using one or more of the following dose reduction techniques: Automated exposure control, adjustment of the mA and/or kV according to patient size, and/or use of iterative reconstruction technique. FINDINGS: There is limited evaluation of the solid organs without the administration of IV contrast. LOWER THORAX: Bilateral lower lobe infiltrates or atelectasis. There is no visible pleural effusion or pneumothorax. Partially imaged borderline cardiomegaly. Small hiatal hernia. LIVER: Unremarkable unenhanced appearance. GALLBLADDER AND BILE DUCTS: Cholelithiasis. PANCREAS: Unremarkable unenhanced appearance. SPLEEN: 7 mm probable splenule. Otherwise unremarkable unenhanced appearance. ADRENALS: Unremarkable unenhanced appearance. KIDNEYS AND URETERS: No hydronephrosis or obstructing renal calculus. Bilateral low attenuation lesions characterized by ultrasound as cystic. BLADDER: The urinary bladder appears unremarkable. REPRODUCTIVE: The prostate gland measures approximately 3.0 x 5.3 cm. APPENDIX: The appendix appears within normal limits of caliber. No secondary signs of acute appendicitis. BOWEL: The stomach is nondistended. Lack of oral contrast limits evaluation for bowel pathology. The bowel loops appear within normal limits of caliber without evidence of intestinal obstruction. Diverticulosis without CT evidence of acute diverticulitis. PERITONEUM: No significant free fluid. No definite free air. LYMPH NODES: No bulky lymphadenopathy identified. VASCULATURE: Atherosclerotic calcifications. No aortic aneurysm. BONES: Multilevel degenerative changes. OTHER FINDINGS: Fat containing left inguinal hernia. Small fat containing umbilical hernia. IMPRESSION: Cholelithiasis. Bilateral lower lobe infiltrates or atelectasis. Bilateral low-attenuation lesions within the kidneys characterized by ultrasound a cystic. Borderline enlargement of the prostate gland. Correlate with PSA. Additional incidental findings as above. Preliminary impression was provided by virtual radiologic.
--- NOTE | 2016-07-27 11:12 | CP.PCM.PN ---
Subjective - Date & Time of Evaluation Date of Evaluation: 07/27/16 Time of Evaluation: 11:10 - Subjective Subjective: Alert Less abdominal pains lipase normalizing creat 3.1- same Mag being repleted TSAT low Objective - Vital Signs/Intake and Output Vital Signs (last 24 hours): Temp Pulse Resp BP Pulse Ox 98.1 F 68 20 143/80 97 07/27/16 08:00 07/27/16 08:00 07/27/16 08:00 07/27/16 08:00 07/27/16 08:00 Intake and Output: 07/27/16 07/27/16 06:59 18:59 Intake Total 1760 Balance 1760 - Medications Medications: Current Medications Amlodipine Besylate (Norvasc) 10 mg PO DAILY [facility] Last Admin: 07/26/16 12:08 Dose: 10 mg Calcitriol (Rocaltrol) 0.25 mcg PO DAILY [facility] Last Admin: 07/26/16 12:08 Dose: 0.25 mcg Heparin Sodium (Porcine) (Heparin) 5,000 units SC Q12 [facility] Last Admin: 07/26/16 21:37 Dose: 5,000 units Home Med (Leflunomide [Leflunomide]) 10 mg PO DAILY [facility] Sodium Chloride (Sodium Chloride 0.9%) 1,000 mls @ 120 mls/hr IV .Q8H20M [facility] Last Admin: 07/27/16 08:09 Dose: 120 mls/hr Magnesium Sulfate/Dextrose (Magnesium Sulfate 1 Gm/100 Ml D5w) 1 gm in 100 mls @ 100 mls/hr IVPB Q1 [facility] Stop: 07/27/16 11:59 Last Admin: 07/27/16 11:05 Dose: 100 mls/hr Metoprolol Tartrate (Lopressor) 50 mg PO BID [facility] Last Admin: 07/26/16 17:26 Dose: 50 mg Ondansetron HCl (Zofran Inj) 4 mg IVP Q6H PRN PRN Reason: Nausea/Vomiting - Labs Labs: 07/27/16 08:20 07/27/16 08:20 APTT 26 SECONDS (21-34) 07/25/16 07:12 - Constitutional Appears: No Acute Distress, Chronically Ill - Head Exam Head Exam: ATRAUMATIC, NORMAL INSPECTION - Eye Exam Eye Exam: EOMI, Normal appearance - Neck Exam Neck Exam: Normal Inspection. absent: Tenderness - Respiratory Exam Respiratory Exam: Clear to Ausculation Bilateral, NORMAL BREATHING PATTERN - Cardiovascular Exam Cardiovascular Exam: REGULAR RHYTHM, +S1 - GI/Abdominal Exam GI & Abdominal Exam: Soft. absent: Tenderness - Extremities Exam Extremities Exam: Normal Inspection. absent: Tenderness - Neurological Exam Neurological Exam: Alert, CN II-XII Intact - Skin Skin Exam: Dry, Warm Assessment and Plan (1) CKD (chronic kidney disease) stage 4, GFR 15-29 ml/min Status: Acute (2) Pancreatitis Status: Acute (3) Abdominal pain Status: Acute (4) HTN (hypertension) Status: Chronic - Assessment and Plan (Free Text) Plan: Replete Fe Monitor renal function- can be done as outpt
--- NOTE | 2016-07-27 12:14 | CP.PCM.DIS ---
<Greg Mann - Last Filed: 07/27/16 22:50> Provider - Provider Date of Admission: 07/24/16 18:39 Attending physician: Yaya Johansen MD Primary care physician: DR. Macie Chase Consults: DR. Roberts (nephrology) Time Spent in preparation of Discharge (in minutes): 40 Diagnosis - Discharge Diagnosis (1) CKD (chronic kidney disease) stage 4, GFR 15-29 ml/min Status: Chronic Comment: Cr now consistently 3, bumped up from previous admission. Dr. Roberts, pts consignee consulted. Unknown etiology of Cr rise, possibly medication induced so adjusted meds (2) Gout Status: Chronic Comment: Discontinued gout meds for now as they are nephrotoxic (3) Pancreatitis Status: Acute Comment: Lipase elevated. Given IVF, pt able to tolerate diet Hospital Course - Lab Results Lab Results: Micro Results 07/25/16 12:48 Urine,Clean Catch Urine Culture - Final No Growth (<1,000 CFU/ML) Most Recent Lab Values WBC 8.9 K/uL (4.8-10.8) 07/27/16 08:20 RBC 3.27 Mil/uL (4.40-5.90) L 07/27/16 08:20 Hgb 10.3 g/dL (12.0-18.0) L 07/27/16 08:20 Hct 31.9 % (35.0-51.0) L 07/27/16 08:20 MCV 97.4 fL (80.0-94.0) H 07/27/16 08:20 MCH 31.5 pg (27.0-31.0) H 07/27/16 08:20 MCHC 32.3 g/dL (33.0-37.0) L 07/27/16 08:20 RDW 15.6 % (11.5-14.5) H 07/27/16 08:20 Plt Count 159 K/uL (130-400) 07/27/16 08:20 MPV 9.8 fL (7.2-11.7) 07/27/16 08:20 Neut % (Auto) 68.8 % (50.0-75.0) 07/27/16 08:20 Lymph % (Auto) 18.4 % (20.0-40.0) L 07/27/16 08:20 [place] % (Auto) 11.6 % (0.0-10.0) H 07/27/16 08:20 Eos % (Auto) 0.7 % (0.0-4.0) 07/27/16 08:20 Baso % (Auto) 0.5 % (0.0-2.0) 07/27/16 08:20 Neut # 6.1 K/uL (1.8-7.0) 07/27/16 08:20 Lymph # 1.6 K/uL (1.0-4.3) 07/27/16 08:20 [place] # 1.0 K/uL (0.0-0.8) H 07/27/16 08:20 Eos # 0.1 K/uL (0.0-0.7) 07/27/16 08:20 Baso # 0.0 K/uL (0.0-0.2) 07/27/16 08:20 Neutrophils % (Manual) 85 % (50-75) H 07/24/16 17:08 Band Neutrophils % 5 % (0-2) H 07/24/16 17:08 Lymphocytes % (Manual) 8 % (20-40) L 07/24/16 17:08 Monocytes % (Manual) 1 % (0-10) 07/24/16 17:08 Eosinophils % (Manual) 1 % (0-4) 07/24/16 17:08 Platelet Estimate Normal (NORMAL) 07/24/16 17:08 Hypochromasia (manual) Slight 07/24/16 17:08 Anisocytosis (manual) Slight 07/24/16 17:08 Tear Drop Cells Slight 07/24/16 17:08 Ovalocytes Slight 07/24/16 17:08 APTT 26 SECONDS (21-34) 07/25/16 07:12 Sodium 136 mmol/L (132-148) 07/27/16 08:20 Potassium 3.8 mmol/L (3.6-5.2) 07/27/16 08:20 Chloride 104 mmol/L (98-107) 07/27/16 08:20 Carbon Dioxide 23 mmol/L (22-30) 07/27/16 08:20 Anion Gap 13 (10-20) 07/27/16 08:20 BUN 44 mg/dL (9-20) H 07/27/16 08:20 Creatinine 3.1 MG/DL (0.8-1.5) H 07/27/16 08:20 Est GFR ( Amer) 26 07/27/16 08:20 Est GFR (Non-Af Amer) 21 07/27/16 08:20 Random Glucose 92 mg/dL (75-110) 07/27/16 08:20 Hemoglobin A1c 5.8 % (4.2-6.5) 07/25/16 07:12 Uric Acid 4.8 mg/dL (3.5-8.5) 07/25/16 07:12 Calcium 8.1 mg/dl (8.6-10.4) L 07/27/16 08:20 Phosphorus 3.1 mg/dL (2.5-4.5) 07/27/16 08:20 Magnesium 1.0 mg/dL (1.6-2.3) L* D 07/27/16 08:20 % Saturation 5 (20-55) L 07/27/16 08:20 Total Bilirubin 0.4 mg/dL (0.2-1.3) 07/27/16 08:20 AST 35 U/L (17-59) 07/27/16 08:20 ALT 42 U/L (21-72) 07/27/16 08:20 Alkaline Phosphatase 49 U/L (38-126) 07/27/16 08:20 Total Creatine Kinase 318 U/L (55-170) H 07/24/16 17:08 CK-MB (Mass) 10.9 ng/mL (0.0-3.38) H 07/24/16 17:08 Troponin I 0.0680 ng/mL (0.00-0.120) 07/24/16 17:08 Total Protein 5.8 g/dL (6.3-8.3) L 07/27/16 08:20 Albumin 2.8 g/dL (3.5-5.0) L 07/27/16 08:20 Globulin 2.9 gm/dL (2.2-3.9) 07/27/16 08:20 Albumin/Globulin Ratio 1.0 (1.0-2.1) 07/27/16 08:20 Triglycerides 71 mg/dL (0-149) 07/25/16 07:12 Cholesterol 247 mg/dL (0-199) H 07/25/16 07:12 LDL Cholesterol Direct 112 mg/dL (0-129) 07/25/16 07:12 HDL Cholesterol 99 mg/dL (30-70) H 07/25/16 07:12 Lipase 296 U/L (23-300) 07/27/16 08:20 Calcium (PTH Intact) 8.9 mg/dL (8.6-10.3) 07/25/16 13:50 PTH w/Ion &Tot Calcium 208 pg/mL (14-64) H 07/25/16 13:50 Urine Color Straw (YELLOW) 07/25/16 14:00 Urine Clarity Clear (Clear) 07/25/16 14:00 Urine pH 5.0 (5.0-8.0) 07/25/16 14:00 Ur Specific [place] 1.004 (1.003-1.030) 07/25/16 14:00 Urine Protein Negative mg/dL (NEGATIVE) 07/25/16 14:00 Urine Glucose (UA) Normal mg/dL (Normal) 07/25/16 14:00 Urine Ketones Negative mg/dL (NEGATIVE) 07/25/16 14:00 Urine Blood 1+ (NEGATIVE) H 07/25/16 14:00 Urine Nitrate Negative (NEGATIVE) 07/25/16 14:00 Urine Bilirubin Negative (NEGATIVE) 07/25/16 14:00 Urine Urobilinogen Normal mg/dL (0.2-1.0) 07/25/16 14:00 Ur Leukocyte Esterase Neg Mell/uL (Negative) 07/25/16 14:00 Urine RBC (Auto) < 1 /hpf (0-3) 07/25/16 14:00 Urine Eosinophils Negative (NEGATIVE) 07/25/16 14:00 - Hospital Course Hospital Course: On admission: 51 year old male PMHx of HTN, HLD, CKD, Chronic back pain, Gout, Anemia of chronic disease, PUD presents with bilateral flank pain for 5 days. Patient reports the pain feels like a dull pressure and is located on both flanks. Patient reports he has pain when he lies down or twists his back but he has no pain when standing or sitting or walking. He denied any pain when I saw him after receiving morphine in the ER but stated he had some tightness in his back at times. 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 Patient saw consignee Dr. Roberts on Sunday. Patient admits to abdominal pain, b/l flank pain, b/l leg swelling and back pain and denies fever, chills, diaphoresis, weakness, headache, dizziness, lightheadedness, change in vision, change in hearing, sore throat, dysphagia, chest pain, palpitations, SOB, cough, nausea, vomiting, bowel/ bladder complaints, pain in his legs b/l, recent travel, recent sick contacts. Hospital course: Pt admitted for flank/abd pain on 07/24/16. US abd on admission showed b/l renal cysts (known from prior MRI), cholelithiasis, negative rubalcava sign. Labs showed increase in creatinine from baseline of 2.[address] Roberts, pts nephro, consulted. Nephrotoxic drugs held. Urine cx, UA, urine eosinophils, and uric acid checked- all negative. Elevated lipase hinted at possible pancreatitis. IVF increased. Pt denied pain on last day of course and was cleared for discharge by Dr. Bright. He was given prescription for new blood pressure meds. Discharge Exam - Head Exam Head Exam: ATRAUMATIC, NORMAL INSPECTION - Eye Exam Eye Exam: EOMI, PERRL Pupil Exam: NORMAL ACCOMODATION - ENT Exam ENT Exam: Mucous Membranes Moist - Respiratory Exam Respiratory Exam: Clear to PA & Lateral. absent: Accessory Muscle Use, Chest Wall Tenderness, Respiratory Distress - Cardiovascular Exam Cardiovascular Exam: REGULAR RHYTHM, +S1, +S2 - GI/Abdominal Exam GI & Abdominal Exam: Normal Bowel Sounds, Soft. absent: Guarding, Tenderness - Extremities Exam Extremities exam: normal capillary refill, pedal pulses present - Back Exam Back exam: absent: CVA tenderness (L), CVA tenderness (R) - Neurological Exam Neurological exam: Alert, Oriented x3 - Psychiatric Exam Psychiatric exam: Normal Affect, Normal Mood - Skin Skin Exam: Dry, Normal Color, Warm Discharge Plan - Discharge Medications Prescriptions: amLODIPine [Norvasc] 10 mg PO DAILY #30 Metoprolol Tartrate [Lopressor] 50 mg PO BID #60 tab - Follow Up Plan Condition: STABLE Disposition: HOME/ ROUTINE Instructions: Metoprolol (By mouth), Amlodipine (By mouth), Chest Pain (DC), Acute Abdominal Pain (DC) Additional Instructions: Patient stable for discharge per Dr. Bright. Patient may resume home medications EXCEPT for ALLOPURINOL, VALSARTAN, COLCHICINE, and SIMVASTATIN. He has been prescribed the following medications: Norvasc and Lopressor Patient is make an appointment with their PMD, Dr. Elizabeth Chase, within one week of discharge for follow-up of flank/back pain and change in blood pressure medication. He should also make an appointment to follow up with Security Alarm Technician, Dr. Roberts, to continue evaluation of worsening renal function. He is advised to return to the emergency department if symptoms return or worsen. These instructions were given to the pt in Danish/Angolan. Patient expressed verbal understanding of these instructions. Prescribed medications: Lopresspr 50mg, one tab by mouth twice daily Norvasc 10mg, one tab mouth once daily Referrals: Vi Chase MD [Staff Provider] - <Kamran Bright - Last Filed: 07/28/16 07:27> Provider - Provider Date of Admission: 07/24/16 18:39 Attending physician: Yaya Johansen MD Hospital Course - Lab Results Lab Results: Micro Results 07/25/16 12:48 Urine,Clean Catch Urine Culture - Final No Growth (<1,000 CFU/ML) Most Recent Lab Values WBC 8.9 K/uL (4.8-10.8) 07/27/16 08:20 RBC 3.27 Mil/uL (4.40-5.90) L 07/27/16 08:20 Hgb 10.3 g/dL (12.0-18.0) L 07/27/16 08:20 Hct 31.9 % (35.0-51.0) L 07/27/16 08:20 MCV 97.4 fL (80.0-94.0) H 07/27/16 08:20 MCH 31.5 pg (27.0-31.0) H 07/27/16 08:20 MCHC 32.3 g/dL (33.0-37.0) L 07/27/16 08:20 RDW 15.6 % (11.5-14.5) H 07/27/16 08:20 Plt Count 159 K/uL (130-400) 07/27/16 08:20 MPV 9.8 fL (7.2-11.7) 07/27/16 08:20 Neut % (Auto) 68.8 % (50.0-75.0) 07/27/16 08:20 Lymph % (Auto) 18.4 % (20.0-40.0) L 07/27/16 08:20 [place] % (Auto) 11.6 % (0.0-10.0) H 07/27/16 08:20 Eos % (Auto) 0.7 % (0.0-4.0) 07/27/16 08:20 Baso % (Auto) 0.5 % (0.0-2.0) 07/27/16 08:20 Neut # 6.1 K/uL (1.8-7.0) 07/27/16 08:20 Lymph # 1.6 K/uL (1.0-4.3) 07/27/16 08:20 [place] # 1.0 K/uL (0.0-0.8) H 07/27/16 08:20 Eos # 0.1 K/uL (0.0-0.7) 07/27/16 08:20 Baso # 0.0 K/uL (0.0-0.2) 07/27/16 08:20 Neutrophils % (Manual) 85 % (50-75) H 07/24/16 17:08 Band Neutrophils % 5 % (0-2) H 07/24/16 17:08 Lymphocytes % (Manual) 8 % (20-40) L 07/24/16 17:08 Monocytes % (Manual) 1 % (0-10) 07/24/16 17:08 Eosinophils % (Manual) 1 % (0-4) 07/24/16 17:08 Platelet Estimate Normal (NORMAL) 07/24/16 17:08 Hypochromasia (manual) Slight 07/24/16 17:08 Anisocytosis (manual) Slight 07/24/16 17:08 Tear Drop Cells Slight 07/24/16 17:08 Ovalocytes Slight 07/24/16 17:08 APTT 26 SECONDS (21-34) 07/25/16 07:12 Sodium 136 mmol/L (132-148) 07/27/16 08:20 Potassium 3.8 mmol/L (3.6-5.2) 07/27/16 08:20 Chloride 104 mmol/L (98-107) 07/27/16 08:20 Carbon Dioxide 23 mmol/L (22-30) 07/27/16 08:20 Anion Gap 13 (10-20) 07/27/16 08:20 BUN 44 mg/dL (9-20) H 07/27/16 08:20 Creatinine 3.1 MG/DL (0.8-1.5) H 07/27/16 08:20 Est GFR ( Amer) 26 07/27/16 08:20 Est GFR (Non-Af Amer) 21 07/27/16 08:20 Random Glucose 92 mg/dL (75-110) 07/27/16 08:20 Hemoglobin A1c 5.8 % (4.2-6.5) 07/25/16 07:12 Uric Acid 4.8 mg/dL (3.5-8.5) 07/25/16 07:12 Calcium 8.1 mg/dl (8.6-10.4) L 07/27/16 08:20 Phosphorus 3.1 mg/dL (2.5-4.5) 07/27/16 08:20 Magnesium 1.0 mg/dL (1.6-2.3) L* D 07/27/16 08:20 % Saturation 5 (20-55) L 07/27/16 08:20 Total Bilirubin 0.4 mg/dL (0.2-1.3) 07/27/16 08:20 AST 35 U/L (17-59) 07/27/16 08:20 ALT 42 U/L (21-72) 07/27/16 08:20 Alkaline Phosphatase 49 U/L (38-126) 07/27/16 08:20 Total Creatine Kinase 318 U/L (55-170) H 07/24/16 17:08 CK-MB (Mass) 10.9 ng/mL (0.0-3.38) H 07/24/16 17:08 Troponin I 0.0680 ng/mL (0.00-0.120) 07/24/16 17:08 Total Protein 5.8 g/dL (6.3-8.3) L 07/27/16 08:20 Albumin 2.8 g/dL (3.5-5.0) L 07/27/16 08:20 Globulin 2.9 gm/dL (2.2-3.9) 07/27/16 08:20 Albumin/Globulin Ratio 1.0 (1.0-2.1) 07/27/16 08:20 Triglycerides 71 mg/dL (0-149) 07/25/16 07:12 Cholesterol 247 mg/dL (0-199) H 07/25/16 07:12 LDL Cholesterol Direct 112 mg/dL (0-129) 07/25/16 07:12 HDL Cholesterol 99 mg/dL (30-70) H 07/25/16 07:12 Lipase 296 U/L (23-300) 07/27/16 08:20 Calcium (PTH Intact) 8.9 mg/dL (8.6-10.3) 07/25/16 13:50 PTH w/Ion &Tot Calcium 208 pg/mL (14-64) H 07/25/16 13:50 Urine Color Straw (YELLOW) 07/25/16 14:00 Urine Clarity Clear (Clear) 07/25/16 14:00 Urine pH 5.0 (5.0-8.0) 07/25/16 14:00 Ur Specific [place] 1.004 (1.003-1.030) 07/25/16 14:00 Urine Protein Negative mg/dL (NEGATIVE) 07/25/16 14:00 Urine Glucose (UA) Normal mg/dL (Normal) 07/25/16 14:00 Urine Ketones Negative mg/dL (NEGATIVE) 07/25/16 14:00 Urine Blood 1+ (NEGATIVE) H 07/25/16 14:00 Urine Nitrate Negative (NEGATIVE) 07/25/16 14:00 Urine Bilirubin Negative (NEGATIVE) 07/25/16 14:00 Urine Urobilinogen Normal mg/dL (0.2-1.0) 07/25/16 14:00 Ur Leukocyte Esterase Neg Mell/uL (Negative) 07/25/16 14:00 Urine RBC (Auto) < 1 /hpf (0-3) 07/25/16 14:00 Urine Eosinophils Negative (NEGATIVE) 07/25/16 14:00 Attending/Attestation - Attestation I have personally seen and examined this patient.: Yes I have fully participated in the care of the patient.: Yes I have reviewed all pertinent clinical information, including history, physical exam and plan: Yes Notes (Text): 07/28/16 07:23 Medical attending: Patient was seen and examined by me, agree with the above note by medical secretary. The patient was no longer having any abdominal or flank pain that brought him to the hospital. I did discuss the case over with his consignee as well as with his primary care physician. The patient has had an extensive outpatient workup with regards to the abdominal pain. While here we did consider the possibility of maybe a small pancreatitis but this immediately resolved without us doing much on our part. More concerning was the elevated creatinine. He does have a history of CAD it looks as if his baseline creatinine is about 2.0, however when he was admitted he had elevated creatinine of 3.1. He is on medication that can increase the creatinine over time including PILAR inhibitor, NSAID class medication, and also medication for his rheumatoid arthritis, and also on allopurinol as well. He was evaluated by nephrology, he had additional imaging of his abdomen done. For the time being we held up PILAR inhibitor he was on, and also to NSAIDs, ill- appearing, I discussed this with the patient's primary care physician he's given need to follow-up primary care physician as well as his consignee Thank you very much, Kamran Bright
[2016-07-27] MEDS ORDERED: Pneumococcal 23-Valent Vaccine IM ONE (12:40)
== END 2016-07-27 14:15 | disposition home or self-care (01) ==
LOC: C.ER 15:45 → C.9E 18:39 → C.5T 19:19 → C.3T 07-27 12:08
PROVIDERS: ADMIT Internal Medicine; ATTEND Internal Medicine
DX: D63.8 Anemia in other chronic diseases classified elsewhere (principal); I12.9 Hypertensive chronic kidney disease with stage 1 through stage 4 chronic kidney disease, or unspecified chronic kidney disease; K85.90 Acute pancreatitis without necrosis or infection, unspecified; E78.5 Hyperlipidemia, unspecified; M10.9 Gout, unspecified; N17.9 Acute kidney failure, unspecified; N18.4 Chronic kidney disease, stage 4 (severe)
CPT/HCPCS: 36415; 74176; 76700; 80053; 80061; 81001; 82550; 82553; 83036; 83690; 83735; 83970; 84100; 84484; 84550; 85025; 85730; 87086; 87205; 93005; 96375; 99285; G0378; J1644; J2270; J2405; J3475; J7040

== ENCOUNTER 2016-11-20 18:20 | Emergency (ER) | payer MEDICAID ==
[2016-11-20 18:21] VITALS: BMI 24.5
[2016-11-20 18:32] VITALS: RESP 20
--- NOTE | 2016-11-20 19:34 | C.PDOC ---
History Of Present Illness 51 year old male with a Hx of gout who presents to the ER with a complaint of right elbow pain for 1 week. Patient denies trauma, weakness, or numbness. no fever or chills. Time Seen by Provider: 11/20/16 18:52 Chief Complaint (Nursing): Upper Extremity Problem/Injury History Per: Patient History/Exam Limitations: no limitations Onset/Duration Of Symptoms: Days Current Symptoms Are (Timing): Still Present Recent travel outside of the [place]: No Past Medical History Reviewed: Historical Data, Nursing Documentation, Vital Signs Vital Signs: Last Vital Signs Temp 98.1 F 11/20/16 20:31 Pulse 76 11/20/16 20:31 Resp 20 11/20/16 20:31 BP 148/76 11/20/16 20:31 Pulse Ox 99 11/23/16 06:50 - Medical History PMH: Anemia, Gastritis, HTN, Hypercholesterolemia, Chronic Kidney Disease Surgical History: Endoscopy - [facility] Procedures ESOPHAGOGASTRODUODENOSCOPY [EGD] W/CLOSED BIOPSY (04/15/14) Family History: States: Unknown Family Hx - Social History Hx Tobacco Use: No Hx Alcohol Use: No Hx Substance Use: No - Immunization History Hx Tetanus Toxoid Vaccination: No Hx Influenza Vaccination: No Hx Pneumococcal Vaccination: No Review Of Systems Musculoskeletal: Positive for: Arm Pain Neurological: Negative for: Weakness, Numbness Physical Exam - Physical Exam Appears: Non-toxic, No Acute Distress Skin: Normal Color, Warm, Dry Head: Atraumatic, Normacephalic Extremity: Other (Mild warmth to posterior right elbow with decreased ROM, decreased extension secondary to pain. Able to pronate and supinate without difficulty. ) Pulses: Left Radial: Normal, Right Radial: Normal Neurological/Psych: Oriented x3, Normal Speech, Normal Cognition, Normal Motor, Normal Sensation ED Course And Treatment O2 Sat by Pulse Oximetry: 99 (Room air) Pulse Ox Interpretation: Normal Progress Note: Right elbow x-ray ordered. Tylenol administered. Medical Decision Making Medical Decision Making: no acute findings on xray. will tx for gout, however pt has chronic kidney diseaseand will avoid nsaids. . will give tylenol with recommendation for electrical engineering technologist f/u Disposition Counseled Patient/Family Regarding: Diagnosis, Need For Followup, Rx Given - Disposition Referrals: Mao Powell DO [[facility]] - Disposition: HOME/ ROUTINE Disposition Time: 20:13 Condition: STABLE Additional Instructions: Follow up with Dr Powell (electrical engineering technologist) and with your primary care doctor. Take Tylenol as prescribed for pain. Return to ER for any worsening symptoms. Prescriptions: Acetaminophen [Tylenol 325mg tab] 650 mg PO Q6 #30 tab Instructions: Gout (ED) Forms: [facility] (Ugandan), General Discharge Instructions - Clinical Impression Clinical Impression: Elbow pain, right, Gout - Scribe Statement The provider has reviewed the documentation as recorded by the Scribizabel Costello All medical record entries made by the Veeibizabel were at my direction and personally dictated by me. I have reviewed the chart and agree that the record accurately reflects my personal performance of the history, physical exam, medical decision making, and the department course for this patient. I have also personally directed, reviewed, and agree with the discharge instructions and disposition.
[2016-11-20 20:32] VITALS: BP 148/76; PULSE 76; TEMP 98.1
--- NOTE | 2016-11-21 07:52 | RAD ---
PROCEDURE: Radiographs of the right elbow. HISTORY: pain posterior elbow COMPARISON: No prior. FINDINGS: BONES: No acute fracture or suspicious lytic or blastic change. A spurt is formed at the olecranon process due to ossification of the insertion of the triceps tendon with relatively prominent soft tissue edema seen post to the distal humerus and overlying the olecranon process as well. JOINTS: Normal. No osteoarthritis. SOFT TISSUES: Normal. JOINT EFFUSION: A small joint effusion is in question. OTHER FINDINGS: None. IMPRESSION: No acute fracture or dislocation. Relatively prominent ossification of the insertion of the triceps tendon at the insertion at the olecranon process is noted with overlying soft tissue edema. Soft edema is seen posterior to the distal humerus and there is a small joint effusions suggested anteriorly as well. MRI may be useful for follow-up.
[2016-11-23 06:49] VITALS: O2SAT 99
== END 2016-11-20 20:32 | disposition home or self-care (01) ==
LOC: C.ER 18:20
DX: M10.9 Gout, unspecified (principal); M25.521 Pain in right elbow

== ENCOUNTER 2016-11-27 11:09 | Day surgery (SDC) | payer MEDICAID ==
[2016-10-17 11:35] VITALS: BMI 24.5
[2016-11-27] MEDS ORDERED: Midazolam 2 MG/2 ML VIAL ONE (14:00)
[2016-11-27] MEDS ORDERED: Propofol 10 mg/ml Inj (20 ML) ONE (14:01)
[2016-11-27] MEDS ORDERED: Rocuronium 10 mg/ml (5 ml) ONE (14:03)
[2016-11-27] MEDS ORDERED: Neostigmine Methylsulfate 3mg/3ml Syringe IV ONE (14:03)
[2016-11-27] MEDS ORDERED: Lidocaine 2% Inj (20ml) ONE (14:20)
[2016-11-27] MEDS ORDERED: Bupivacaine-Epi 0.25%-1:200,000 PF Inj ONE (14:20)
[2016-11-27] MEDS ORDERED: ceFAZolin IV 2 gm in Dextrose 1 GM/50 ML BAG IVPB ONE (14:52)
[2016-11-27] MEDS ORDERED: Lidocaine 1% Inj (20ml) ONE (14:52)
[2016-11-27] MEDS ORDERED: Lactated Ringer's 1,000 ML IV ONE ×2 (15:00→16:15)
[2016-11-27] MEDS ORDERED: HYDROmorphone 0.5 mg/0.5 ml ISec IVP PRN (16:30)
--- NOTE | 2016-11-27 16:44 | PCM.SURG1 ---
Surgeon's Initial Post Op Note - Surgeon's Notes Surgeon: Grace Supervisor [employer]: Abhi PGY3, [place] Type of Anesthesia: General Endo, Local Pre-Operative Diagnosis: Cholelithiasis Operative Findings: normal intra-abominal anatomy Post-Operative Diagnosis: same Operation Performed: robotic assisted cholecystectomy Specimen/Specimens Removed: gallbladder Estimated Blood Loss: EBL {In ML}: 10 Blood Products Given: N/A Drains Used: No Drains Post-Op Condition: Good Date of Surgery/Procedure: 11/27/16 Time of Surgery/Procedure: 16:43
[2016-11-27] MEDS ORDERED: Racepinephrine 2.25% Inhal Soln 0.5 ML UD NEB ONE (16:45)
[2016-11-27] MEDS ORDERED: Dexamethasone 4 mg/1 ml IVP PRN (16:45)
[2016-11-27] MEDS ORDERED: Racepinephrine 2.25% Inhal Soln 0.5 ML UD ONE (16:51)
[2016-11-27] MEDS ORDERED: HYDROmorphone 1 mg/ml ISec ONE (18:01)
[2016-11-27] MEDS ORDERED: Lactated Ringer's 500 ML IV ONE (19:07)
[2016-11-27 19:14] VITALS: O2SAT 100
[2016-11-27 20:10] VITALS: BP 164/96; PULSE 103; RESP 26; TEMP 97.8
--- NOTE | 2016-11-28 01:27 | OP ---
PROCEDURE DATE: 11/27/2016 PREOPERATIVE DIAGNOSIS: Chronic cholecystitis and chololithiasis. POSTOPERATIVE DIAGNOSIS: Chronic cholecystitis and chololithiasis. PROCEDURE: Robotic cholecystectomy. SURGEON: Dr. Edwards. TAR POT WORKER: JATINDER Estrada. TYPE OF ANESTHESIA: General endotracheal tube anesthesia. ESTIMATED BLOOD LOSS: Around 10 mL. DRAIN: None. PATHOLOGY: Gallbladder with the gallstone was sent for pathology. COMPLICATIONS: None. INTRAOPERATIVE FINDINGS: The patient has changes of chronic cholecystitis and chololithiasis. DESCRIPTION OF PROCEDURE: On intraoperative steps, this 51-year-old male who was diagnosed with the chronic cholecystitis and cholelithiasis and the patient was consented for the robotic cholecystectomy, possible open, brought to the OR, placed supine on the operating table. After induction of the anesthesia, abdomen was prepped and draped in the usual sterile fashion. The supraumbilical transverse incision was made after incising skin and subcutaneous tissue. The fascia was incised, and robotic camera port was placed. Another three 8-mm robotic camera was placed in the upper abdomen, the robot was brought in, the camera arm, as well as arm 1 and arm 2 was docked and the gallbladder was retracted cranially. Calot's triangle dissection was done. The cystic duct and cystic artery was identified. Intraoperative FireFly was used and cystic duct and cystic artery was confirmed. The cystic duct and cystic artery was clipped at 3 places and cut in between 2 clips near by gallbladder. The gallbladder was dissected-free from the gallbladder fossa, taken in EndoCatch bag, taken out through the umbilical port site and sent to the table for the pathology. There was a proper hemostasis in each and every part of the procedure and the suction irrigation of the gallbladder fossa as well as the perihepatic area was done and the gallbladder was sent to the table for the pathology. The robot was undocked. All the instrument was taken out. All the ports were taken out under vision. Pneumo was deflated. Umbilical port site was closed using 2 layers, fascia with 0-Vicryl interrupted sutures, skin with a 4-Monocryl, and dry sterile dressing was applied. The patient tolerated the procedure well. Count of the instrument and gauze was correct. There was no apparent complication. The patient was extubated in OR and sent to the postanesthesia care unit in stable condition. Francisco Edwards MD [facility] # [id number]
== END 2016-11-27 20:20 | disposition home or self-care (01) ==
LOC: C.SDS 11:09
PROVIDERS: ATTEND Surgery Surgical Critical Care
DX: K80.10 Calculus of gallbladder with chronic cholecystitis without obstruction (principal)
CPT/HCPCS: 47562; J0690; J1100; J1170; J1885; J2001; J2250; J2405; J2704; J2710; J3010; J7030; J7120; S2900

== ENCOUNTER 2018-03-02 16:15 | Emergency (ER) | payer MEDICAID ==
[2018-03-02 16:15] VITALS: BMI 27.1
[2018-03-02 16:31] VITALS: BP 169/101; PULSE 68; RESP 18; TEMP 98.4; O2SAT 98
[2018-03-02] MEDS ORDERED: Oxycodone/Acetaminophen 5/325 mg Tab PO STA (16:34)
[2018-03-02] MEDS ORDERED: Oxycodone/Acetaminophen 5/325 mg Tab ONE (16:41)
--- NOTE | 2018-03-02 17:10 | C.PDOC ---
History Of Present Illness 52 y/o male comes in to ED complaining of left elbow pain after he slipped and fell on the sidewalk. Patient has no other complaints. He denies LOC or head injury. Time Seen by Provider: 03/02/18 16:31 Chief Complaint (Nursing): Upper Extremity Problem/Injury History Per: Patient History/Exam Limitations: no limitations Onset/Duration Of Symptoms: Hrs Current Symptoms Are (Timing): Still Present Past Medical History Reviewed: Historical Data, Nursing Documentation, Vital Signs Vital Signs: Last Vital Signs Temp 98.4 F 03/02/18 16:24 Pulse 68 03/02/18 16:24 Resp 18 03/02/18 16:24 BP 169/101 H 03/02/18 16:24 Pulse Ox 98 03/02/18 16:24 - Medical History PMH: Anemia, Gastritis, HTN, Hypercholesterolemia, Chronic Kidney Disease Surgical History: Endoscopy - [facility] Procedures ESOPHAGOGASTRODUODENOSCOPY [EGD] W/CLOSED BIOPSY (04/15/14) Family History: States: No Known Family Hx - Social History Hx Tobacco Use: No Hx Alcohol Use: No Hx Substance Use: No - Immunization History Hx Tetanus Toxoid Vaccination: No Hx Influenza Vaccination: No Hx Pneumococcal Vaccination: No Review Of Systems Except As Marked, All Systems Reviewed And Found Negative. Constitutional: Negative for: Fever, Chills Cardiovascular: Negative for: Chest Pain Respiratory: Negative for: Shortness of Breath Gastrointestinal: Negative for: Nausea, Vomiting Musculoskeletal: Positive for: Other (Left Elbow Pain) Neurological: Negative for: Headache, Other (LOC) Physical Exam - Physical Exam Appears: Non-toxic, No Acute Distress Skin: Warm, Dry Head: Atraumatic, Normacephalic Eye(s): bilateral: Normal Inspection Oral Mucosa: Moist Neck: Supple Chest: Symmetrical Cardiovascular: Rhythm Regular, No Murmur Respiratory: Normal Breath Sounds, No Rales, No Rhonchi, No Wheezing Extremity: Tenderness (to left elbow), Capillary Refill (less than 2 seconds), Swelling (of L elbow) Extremity: Bilateral: Normal Color And Temperature, Normal ROM Pulses: Left Radial: Normal Neurological/Psych: Oriented x3, Normal Speech ED Course And Treatment O2 Sat by Pulse Oximetry: 98 (RA) Pulse Ox Interpretation: Normal Medical Decision Making Medical Decision Making: Plan: --Percocet PO --Left Elbow XR --Left Humerus XR Posterior elbow splint placed. (+)fat pad posterior and saild sign. neuro vasc in tact ? occult fx. advise outpt fu. Disposition - Disposition Referrals: Valentín Navarro MD [Staff Provider] - Disposition: HOME/ ROUTINE Disposition Time: 18:00 Condition: STABLE Additional Instructions: please see specialist. return to er with worsening. Prescriptions: RX: traMADol [Ultram] 50 mg PO Q6 PRN #10 tab PRN Reason: Pain, Severe (8-10) Instructions: Elbow Fracture (DC) Forms: [employer] (Sami) - Clinical Impression Clinical Impression: Elbow fracture - Scribe Statement The provider has reviewed the documentation as recorded by the Veeibizabel Nolen Provider Attestation: All medical record entries made by the Veeibe were at my direction and personally dictated by me. I have reviewed the chart and agree that the record accurately reflects my personal performance of the history, physical exam, medical decision making, and the department course for this patient. I have also personally directed, reviewed, and agree with the discharge instructions and disposition.
--- NOTE | 2018-03-03 08:52 | RAD ---
PROCEDURE: Radiographs of the left humerus. HISTORY: trauma COMPARISON: None. FINDINGS: BONES: Normal. No fracture or focal lesion. SOFT TISSUES: Normal. OTHER FINDINGS: None. IMPRESSION: Normal radiographs of left humerus.
--- NOTE | 2018-03-03 14:33 | RAD ---
Date of service: 03/02/2018 PROCEDURE: Radiographs of the left elbow. HISTORY: trauma COMPARISON: Correlation made made with radiographs of the right elbow. Comparison made with concurrent radiographs of the left humerus FINDINGS: BONES: No definitive evidence of acute displaced fracture nor dislocation however there is a joint effusion present suggesting occult injury. Follow-up of radiographs in 5-10 days recommended to assess for fracture JOINTS: Normal. No osteoarthritis. SOFT TISSUES: No evidence of subcutaneous emphysema or radiopaque foreign bodies JOINT EFFUSION: Small joint effusion OTHER FINDINGS: None IMPRESSION: No definitive evidence of fracture line is seen however there is a joint effusion suggesting underlying occult injury.. Recommend repeat radiographs 5-10 days or follow-up CT scan of the left elbow.. Recommend
== END 2018-03-02 18:36 | disposition home or self-care (01) ==
LOC: C.ER 16:15
DX: S42.402A Unspecified fracture of lower end of left humerus, initial encounter for closed fracture (principal); W01.0XXA Fall on same level from slipping, tripping and stumbling without subsequent striking against object, initial encounter; Y92.480 Sidewalk as the place of occurrence of the external cause

== ENCOUNTER 2018-05-15 09:12 | Emergency (ER) | payer MEDICAID ==
[2018-05-15 09:12] VITALS: BMI 27.1
[2018-05-15 09:21] VITALS: TEMP 97.5; O2SAT 100
--- NOTE | 2018-05-15 09:44 | C.PDOC ---
Time Seen by Provider: 05/15/18 09:41 Chief Complaint (Nursing): Medical Clearance Past Medical History Vital Signs: Last Vital Signs Temp 97.5 F L 05/15/18 09:17 Pulse 57 L 05/15/18 09:17 Resp 18 05/15/18 09:17 BP 146/86 05/15/18 09:17 Pulse Ox 100 05/15/18 09:17 - Medical History PMH: Anemia, Gastritis, HTN, Hypercholesterolemia, Chronic Kidney Disease Surgical History: Endoscopy - [facility] Procedures ESOPHAGOGASTRODUODENOSCOPY [EGD] W/CLOSED BIOPSY (04/15/14) - Social History Hx Tobacco Use: No Hx Alcohol Use: No Hx Substance Use: No - Immunization History Hx Tetanus Toxoid Vaccination: No Hx Influenza Vaccination: No Hx Pneumococcal Vaccination: No ED Course And Treatment O2 Sat by Pulse Oximetry: 100 Disposition - Disposition
--- NOTE | 2018-05-15 10:46 | C.PDOC ---
History Of Present Illness 52 y/o male presents to the ER complaining of intermittent sharp left arm pain which has been present for the past 3 months. Patient states that he had a fall in February and he was evaluated for arm pain in [facility] at the time. Patient had X-Ray-Left Elbow which showed possible fracture and he was instructed to follow up with orthopedist. He notes that he followed up with an orthopedist a few times. However, he was not able to see him the last time he went to his office. He notes that he decided to come to the ER because he is still having arm pain. Denies having weakness and numbness. Time Seen by Provider: 05/15/18 09:41 Chief Complaint (Nursing): Medical Clearance History Per: Patient History/Exam Limitations: no limitations Onset/Duration Of Symptoms: Days Current Symptoms Are (Timing): Still Present Severity: Moderate Past Medical History Reviewed: Historical Data, Nursing Documentation, Vital Signs Vital Signs: Last Vital Signs Temp 97.5 F L 05/15/18 09:17 Pulse 57 L 05/15/18 09:17 Resp 18 05/15/18 09:17 BP 146/86 05/15/18 09:17 Pulse Ox 100 05/15/18 09:17 - Medical History PMH: Anemia, Gastritis, HTN, Hypercholesterolemia, Chronic Kidney Disease Surgical History: Endoscopy - [facility] Procedures ESOPHAGOGASTRODUODENOSCOPY [EGD] W/CLOSED BIOPSY (04/15/14) Family History: States: No Known Family Hx - Social History Hx Tobacco Use: No Hx Alcohol Use: No Hx Substance Use: No - Immunization History Hx Tetanus Toxoid Vaccination: No Hx Influenza Vaccination: No Hx Pneumococcal Vaccination: No Review Of Systems Except As Marked, All Systems Reviewed And Found Negative. Musculoskeletal: Positive for: Arm Pain (left arm pain) Neurological: Negative for: Weakness, Numbness Physical Exam - Physical Exam Appears: Non-toxic, No Acute Distress Skin: Normal Color, Warm, Dry Head: Atraumatic, Normacephalic Eye(s): bilateral: Normal Inspection Nose: Normal Oral Mucosa: Moist Neck: Supple Chest: Symmetrical Extremity: Normal ROM (left arm), No Tenderness (left arm), No Swelling (left arm) Pulses: Left Brachial: Normal, Left Radial: Normal Neurological/Psych: Oriented x3, Normal Speech, Normal Motor, Normal Sensation ED Course And Treatment O2 Sat by Pulse Oximetry: 100 (RA) Pulse Ox Interpretation: Normal - Other Rad X-Ray-Left Elbow X-Ray: Viewed By Me, Read By Radiologist Interpretation: Date of service: 05/15/2018. PROCEDURE: Radiographs of the left elbow. HISTORY: pain. COMPARISON: No prior. TECHNIQUE: 3 views obtained. FINDINGS: BONES: No acute fracture or destructive bony lesion identified. JOINTS: Normal. No osteoarthritis. SOFT TISSUES: Normal. JOINT EFFUSION: None. OTHER FINDINGS: None. IMPRESSION: Unremarkable radiographs of the left elbow. Progress Note: Patient reports he wanted his arm checked today. Full ROM left elbow, (+) pulses (-) tender. X-Ray (-) Reassessment Condition: Unchanged Medical Decision Making Medical Decision Making: Plan: --X-Ray-Left Elbow Disposition Counseled Patient/Family Regarding: Studies Performed, Diagnosis, Need For Followup, Rx Given - Disposition Referrals: [facility] [Outside] 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 - Scribe Statement The provider has reviewed the documentation as recorded by the Veeibe Stefano Pavon Provider Attestation All medical record entries made by the Scribe were at my direction and personally dictated by me. I have reviewed the chart and agree that the record accurately reflects my personal performance of the history, physical exam, medical decision making, and the department course for this patient. I have also personally directed, reviewed, and agree with the discharge instructions and disposition.
[2018-05-15 11:52] VITALS: BP 144/83; PULSE 55; RESP 20
--- NOTE | 2018-05-15 14:02 | RAD ---
Date of service: 05/15/2018 PROCEDURE: Radiographs of the left elbow. HISTORY: pain COMPARISON: No prior. TECHNIQUE: 3 views obtained. FINDINGS: BONES: No acute fracture or destructive bony lesion identified. JOINTS: Normal. No osteoarthritis. SOFT TISSUES: Normal. JOINT EFFUSION: None. OTHER FINDINGS: None IMPRESSION: Unremarkable radiographs of the left elbow.
== END 2018-05-15 11:52 | disposition home or self-care (01) ==
LOC: C.ER 09:12
DX: M25.522 Pain in left elbow (principal); E78.00 Pure hypercholesterolemia, unspecified; I12.9 Hypertensive chronic kidney disease with stage 1 through stage 4 chronic kidney disease, or unspecified chronic kidney disease; N18.9 Chronic kidney disease, unspecified

== ENCOUNTER 2018-07-04 09:12 | Outpatient (CLI) | payer MEDICAID | END 2018-07-04 09:13 | disposition home or self-care (01) | LOC: C.USIC 09:12 | DX: R10.10 Upper abdominal pain, unspecified (principal) ==